=== PATIENT | male | born 1950 | race Caucasian/White ===

== ENCOUNTER 2021-02-22 05:57 | Outpatient (REF) | payer MEDICARE, MEDICAID, SELFPAY ==
[2021-02-22 11:15] LABS: MANUAL DIFF FLAG NO
[2021-02-22 11:25] LABS: Basophils Absolute Auto 0.1 X10*3/uL (0.0-0.2); Basophils Percent Auto 0.5 % (0-2); Eosinophils Absolute Auto 0.3 X10*3/uL (0.0-0.4); Eosinophils Percent Auto 3.7 % (0-4); Hematocrit 44.6 % (42-52); Hemoglobin 14.9 g/dl (14.0-18.0); Imm Gran Abs Auto 0.05 X10*3/uL (0.00-0.03); Imm Gran Pct Auto 0.5 % (0.0-0.4); Lymphocytes Absolute Auto 2.2 X10*3/uL (1.2-4.9); Lymphocytes Percent Auto 23.9 % (20-40); Mean Corpuscular HGB Conc 33.4 g/dl (31.0-36.0); Mean Corpuscular Hemoglobin 31.6 pg (27.0-33.0); Mean Corpuscular Volume 94.5 fL (80-98); Mean Platelet Volume 9.2 fL (9.4-12.4); Monocytes Absolute Auto 0.8 X10*3/uL (0.1-1.2); Monocytes Percent Auto 8.1 % (2-11); Neutrophils Absolute Auto 5.9 X10*3/uL (2.0-8.3); Neutrophils Percent Auto 63.3 % (45-73); Platelet Count 238 X10*3/uL (160-400); Red Blood Count 4.72 X10*6/uL (4.60-5.80); Red Cell Distribution Width 12.7 % (11.0-16.0); White Blood Count 9.3 X10*3/uL (4.8-10.8)
[2021-02-22 11:39] LABS: Glucose Urine UA NEG (NEG); Leukocyte Esterase Urine NEG (NEG); Nitrite Urine NEG (NEG); Specific Gravity - Urine 1.015 (1.005-1.025); Urine Blood NEG (NEG); Urine Ketones NEG (NEG); Urine Protein NEG (NEG-TRACE)
[2021-02-22 11:43] LABS: Alanine Aminotransferase 20 U/L (0-40); Albumin Level 4.2 g/dL (3.5-5.0); Alkaline Phosphatase 80 U/L (39-117); Anion Gap 14 (12-20); Aspartate Amino Transferase 17 U/L (5-37); Bilirubin Total 1.3 mg/dL (0.0-1.0); Blood Urea Nitrogen 18 mg/dL (9-16); Calcium 8.6 mg/dL (8.4-10.2); Carbon Dioxide 26 mmol/L (22-29); Chloride 101 mmol/L (96-108); Cholesterol 169 mg/dL; Estimated Glomerular Filt Rate > 60; Glucose Fasting 123 mg/dL (60-99); HDL Cholesterol 64 mg/dL; LDL Cholesterol Calculated 91 mg/dl; Potassium 4.1 mmol/L (3.3-5.1); Sodium 137 mmol/L (135-145); Triglycerides 74 mg/dL
[2021-02-22 11:48] LABS: Appearance Urine CLEAR; Color Urine YELLOW
[2021-02-22 11:49] LABS: TSH reflex Free T4 1.02 uIU/mL (0.32-4.0)
[2021-02-22 12:08] LABS: Creatinine Urine 105.74 mg/dL; Microalbum/Creatinine Ratio Ur 6.6 ug/mg cr
== END 2021-02-22 05:58 | disposition home or self-care (01) ==
LOC: HO.HMGCLDS 05:57
PROVIDERS: PCP Internal Medicine; Visit Provider Internal Medicine
DX: E11.9 Type 2 diabetes mellitus without complications (principal); E78.5 Hyperlipidemia, unspecified; J44.9 Chronic obstructive pulmonary disease, unspecified; E66.9 Obesity, unspecified
CPT/HCPCS: 36415; 80053; 80061; 81003; 82043; 84443; 85025

== ENCOUNTER 2021-03-16 07:54 | Outpatient (REF) | payer MEDICARE, MEDICAID, SELFPAY ==
--- NOTE | ~2021-03-16 | XR_ITS ---
EXAMINATION: XR CERVICAL SPINE XR ELBOW, LEFT CLINICAL INFORMATION: Neck and elbow pain. COMPARISON: Cervical spine of 07/10/2014. TECHNIQUE: 4-view cervical spine and three-view left elbow. FINDINGS: Views of the cervical spine are limited with C5 through C7 not being well seen on lateral view. No abnormal prevertebral soft tissue swelling is present. No definite cervical spine fracture is appreciated. It is difficult to evaluate disc space narrowing C5 through C7. There is seen to be some facet arthropathy at the C2-C3 level. Carotid artery calcifications are present. There is no evidence of acute fracture or dislocation of the left elbow. No left elbow effusion. There is some spurring seen about the coronoid process. There is mild spurring about the radial aspect of the proximal radius. XR/XR elbow LT min 3V IMPRESSION: Limited cervical spine study as described with lack of visualization of lower aspect of C5 through C7. No acute fracture or prevertebral soft tissue swelling is appreciated on this limited study. No evidence of acute fracture or effusion of the left elbow.
--- NOTE | ~2021-03-16 | XR_ITS ---
EXAMINATION: XR CERVICAL SPINE XR ELBOW, LEFT CLINICAL INFORMATION: Neck and elbow pain. COMPARISON: Cervical spine of 07/10/2014. TECHNIQUE: 4-view cervical spine and three-view left elbow. FINDINGS: Views of the cervical spine are limited with C5 through C7 not being well seen on lateral view. No abnormal prevertebral soft tissue swelling is present. No definite cervical spine fracture is appreciated. It is difficult to evaluate disc space narrowing C5 through C7. There is seen to be some facet arthropathy at the C2-C3 level. Carotid artery calcifications are present. There is no evidence of acute fracture or dislocation of the left elbow. No left elbow effusion. There is some spurring seen about the coronoid process. There is mild spurring about the radial aspect of the proximal radius. XR/XR cervical spine 3V IMPRESSION: Limited cervical spine study as described with lack of visualization of lower aspect of C5 through C7. No acute fracture or prevertebral soft tissue swelling is appreciated on this limited study. No evidence of acute fracture or effusion of the left elbow.
== END 2021-03-16 07:55 | disposition home or self-care (01) ==
LOC: HO.HMGCX 07:54
PROVIDERS: PCP Internal Medicine; Visit Provider Internal Medicine
DX: M47.812 Spondylosis without myelopathy or radiculopathy, cervical region (principal); M25.522 Pain in left elbow
CPT/HCPCS: 72040; 73080

== ENCOUNTER 2021-05-26 06:01 | Outpatient (REF) | payer MEDICARE, MEDICAID, SELFPAY ==
[2021-05-26 11:16] LABS: MANUAL DIFF FLAG NO
[2021-05-26 11:23] LABS: Basophils Absolute Auto 0.1 X10*3/uL (0.0-0.2); Basophils Percent Auto 0.7 % (0-2); Eosinophils Absolute Auto 0.4 X10*3/uL (0.0-0.4); Eosinophils Percent Auto 4.8 % (0-4); Hematocrit 45.2 % (42-52); Imm Gran Abs Auto 0.04 X10*3/uL (0.00-0.03); Imm Gran Pct Auto 0.4 % (0.0-0.4); Lymphocytes Absolute Auto 2.5 X10*3/uL (1.2-4.9); Lymphocytes Percent Auto 27.4 % (20-40); Mean Corpuscular HGB Conc 33.2 g/dl (31.0-36.0); Mean Corpuscular Hemoglobin 31.3 pg (27.0-33.0); Mean Corpuscular Volume 94.2 fL (80-98); Mean Platelet Volume 9.3 fL (9.4-12.4); Monocytes Absolute Auto 0.7 X10*3/uL (0.1-1.2); Neutrophils Absolute Auto 5.4 X10*3/uL (2.0-8.3); Neutrophils Percent Auto 58.7 % (45-73); Platelet Count 216 X10*3/uL (160-400); Red Cell Distribution Width 12.5 % (11.0-16.0); White Blood Count 9.2 X10*3/uL (4.8-10.8)
[2021-05-26 11:34] LABS: Estimated Average Glucose 143 mg/dL; Hemoglobin A1c % 6.6 %
[2021-05-26 11:38] LABS: Glucose Urine UA NEG (NEG); Leukocyte Esterase Urine NEG (NEG); Nitrite Urine NEG (NEG); Specific Gravity - Urine <= 1.005 (1.005-1.025); Urine Blood NEG (NEG); Urine Ketones NEG (NEG); Urine Protein NEG (NEG-TRACE)
[2021-05-26 11:39] LABS: Creatinine Urine 71.65 mg/dL; Microalbumin Urine < 5.0 mg/L
[2021-05-26 11:42] LABS: Alanine Aminotransferase 14 U/L (0-40); Albumin Level 4.2 g/dL (3.5-5.0); Alkaline Phosphatase 97 U/L (39-117); Anion Gap 17 (12-20); Aspartate Amino Transferase 14 U/L (5-37); Bilirubin Total 0.9 mg/dL (0.0-1.0); Blood Urea Nitrogen 12 mg/dL (9-16); Carbon Dioxide 24 mmol/L (22-29); Chloride 101 mmol/L (96-108); Cholesterol 181 mg/dL; Estimated Glomerular Filt Rate > 60; Glucose Fasting 119 mg/dL (60-99); HDL Cholesterol 62 mg/dL; LDL Cholesterol Calculated 106 mg/dl; Potassium 4.2 mmol/L (3.3-5.1); Sodium 138 mmol/L (135-145); Triglycerides 66 mg/dL
[2021-05-26 11:46] LABS: Appearance Urine CLEAR; Color Urine YELLOW
[2021-05-26 12:06] LABS: TSH reflex Free T4 1.01 uIU/mL (0.32-4.0)
== END 2021-05-26 06:02 | disposition home or self-care (01) ==
LOC: HO.HMGCLDS 06:01
PROVIDERS: PCP Internal Medicine; Visit Provider Internal Medicine
DX: E11.9 Type 2 diabetes mellitus without complications (principal); J44.9 Chronic obstructive pulmonary disease, unspecified; E78.5 Hyperlipidemia, unspecified; E66.9 Obesity, unspecified
CPT/HCPCS: 36415; 80053; 80061; 81003; 82043; 83036; 84443; 85025

== ENCOUNTER 2022-01-19 06:15 | Outpatient (REF) | payer MEDICARE, MEDICAID, SELFPAY ==
[2022-01-19 11:02] LABS: MANUAL DIFF FLAG NO
[2022-01-19 11:13] LABS: Appearance Urine CLEAR; Color Urine STRAW; Glucose Urine UA NEG (NEG); Leukocyte Esterase Urine NEG (NEG); Nitrite Urine NEG (NEG); Specific Gravity - Urine <= 1.005 (1.005-1.025); Urine Blood NEG (NEG); Urine Ketones NEG (NEG); Urine Protein NEG (NEG-TRACE)
[2022-01-19 11:18] LABS: Basophils Absolute Auto 0.1 X10*3/uL (0.0-0.2); Basophils Percent Auto 0.6 % (0-2); Eosinophils Absolute Auto 0.3 X10*3/uL (0.0-0.4); Eosinophils Percent Auto 3.9 % (0-4); Hematocrit 45.2 % (42.0-52.0); Imm Gran Abs Auto 0.05 X10*3/uL (0.00-0.03); Imm Gran Pct Auto 0.6 % (0.0-0.4); Lymphocytes Percent Auto 25.4 % (20-40); Mean Corpuscular HGB Conc 33.2 g/dl (31.0-36.0); Mean Corpuscular Hemoglobin 30.9 pg (27.0-33.0); Mean Platelet Volume 9.1 fL (9.4-12.4); Monocytes Absolute Auto 0.6 X10*3/uL (0.1-1.2); Monocytes Percent Auto 7.2 % (2-11); Neutrophils Percent Auto 62.3 % (45-73); Platelet Count 214 X10*3/uL (160-400); Red Blood Count 4.86 X10*6/uL (4.60-5.80); Red Cell Distribution Width 12.7 % (11.0-16.0)
[2022-01-19 11:41] LABS: Estimated Average Glucose 134 mg/dL; Hemoglobin A1c % 6.3 %
[2022-01-19 11:48] LABS: Alanine Aminotransferase 15 U/L (0-40); Albumin Level 4.3 g/dL (3.5-5.0); Alkaline Phosphatase 83 U/L (39-117); Anion Gap 14 (12-20); Aspartate Amino Transferase 17 U/L (5-37); Bilirubin Total 1.4 mg/dL (0.0-1.0); Blood Urea Nitrogen 14 mg/dL (9-16); Calcium 9.6 mg/dL (8.4-10.2); Carbon Dioxide 25 mmol/L (22-29); Chloride 102 mmol/L (96-108); Cholesterol 166 mg/dL; Estimated Glomerular Filt Rate > 60; Glucose Fasting 111 mg/dL (60-99); HDL Cholesterol 56 mg/dL; LDL Cholesterol Calculated 96 mg/dl; Potassium 3.9 mmol/L (3.3-5.1); Sodium 137 mmol/L (135-145); Total Protein 7.1 g/dL (6.5-8.0); Triglycerides 72 mg/dL
[2022-01-19 11:49] LABS: Creatinine Urine 24.46 mg/dL; Microalbumin Urine < 5.0 mg/L
[2022-01-19 11:53] LABS: TSH reflex Free T4 0.91 uIU/mL (0.32-4.0); Vitamin D 25-OH Total 15.8 ng/mL (>30)
== END 2022-01-19 06:16 | disposition home or self-care (01) ==
LOC: HO.HMGCLDS 06:15
PROVIDERS: Visit Provider Internal Medicine
DX: I10 Essential (primary) hypertension (principal); E78.00 Pure hypercholesterolemia, unspecified; E11.9 Type 2 diabetes mellitus without complications; E55.9 Vitamin D deficiency, unspecified
CPT/HCPCS: 36415; 80053; 80061; 81003; 82043; 82306; 83036; 84443; 85025

== ENCOUNTER 2022-09-13 06:05 | Outpatient (REF) | payer MEDICARE, MEDICAID, SELFPAY ==
[2022-09-13 11:17] LABS: MANUAL DIFF FLAG NO
[2022-09-13 11:29] LABS: Appearance Urine Clear; Color Urine Yellow; Glucose Urine UA Negative (Negative); Leukocyte Esterase Urine Negative (Negative); Nitrite Urine Negative (Negative); PH 6.5 (5.0-9.0); Specific Gravity - Urine <= 1.005 (1.005-1.025); Urine Blood Negative (Negative); Urine Ketones Negative (Negative); Urine Protein Negative (Neg-Trace)
[2022-09-13 11:34] LABS: Basophils Percent Auto 0.5 % (0-2); Eosinophils Absolute Auto 0.3 X10*3/uL (0.0-0.4); Eosinophils Percent Auto 3.2 % (0-4); Hematocrit 45.3 % (42.0-52.0); Hemoglobin 15.5 g/dl (14.0-18.0); Imm Gran Abs Auto 0.03 X10*3/uL (0.00-0.03); Imm Gran Pct Auto 0.4 % (0.0-0.4); Lymphocytes Absolute Auto 2.4 X10*3/uL (1.2-4.9); Lymphocytes Percent Auto 30.6 % (20-40); Mean Corpuscular HGB Conc 34.2 g/dl (31.0-36.0); Mean Corpuscular Hemoglobin 32.4 pg (27.0-33.0); Mean Corpuscular Volume 94.6 fL (80.0-98.0); Mean Platelet Volume 9.2 fL (9.4-12.4); Monocytes Absolute Auto 0.7 X10*3/uL (0.1-1.2); Monocytes Percent Auto 8.8 % (2-11); Neutrophils Absolute Auto 4.5 x10*3/uL (2.0-8.3); Neutrophils Percent Auto 56.5 % (45-73); Platelet Count 200 X10*3/uL (160-400); Red Blood Count 4.79 X10*6/uL (4.60-5.80); Red Cell Distribution Width 12.9 % (11.0-16.0); White Blood Count 7.9 X10*3/uL (4.8-10.8)
[2022-09-13 11:43] LABS: Estimated Average Glucose 126 mg/dL
[2022-09-13 11:48] LABS: Alanine Aminotransferase 15 U/L (0-40); Albumin Level 4.6 g/dL (3.5-5.0); Alkaline Phosphatase 88 U/L (39-117); Anion Gap 19 (12-20); Aspartate Amino Transferase 15 U/L (5-37); Bilirubin Total 1.4 mg/dL (0.0-1.0); Blood Urea Nitrogen 15 mg/dL (9-16); Calcium 9.8 mg/dL (8.4-10.2); Carbon Dioxide 25 mmol/L (22-29); Chloride 99 mmol/L (96-108); Cholesterol 186 mg/dL; Estimated Glomerular Filt Rate > 60; Glucose Fasting 98 mg/dL (60-99); HDL Cholesterol 67 mg/dL; LDL Cholesterol Calculated 108 mg/dl; Potassium 4.6 mmol/L (3.3-5.1); Sodium 138 mmol/L (135-145); Total Protein 7.4 g/dL (6.5-8.0); Triglycerides 57 mg/dL
[2022-09-13 12:10] LABS: Vitamin D 25-OH Total 16.2 ng/mL (>30)
[2022-09-13 12:22] LABS: Creatinine Urine 19.79 mg/dL; Microalbumin Urine < 5.0 mg/L
== END 2022-09-13 06:06 | disposition home or self-care (01) ==
LOC: HO.HMGCLDS 06:05
PROVIDERS: PCP Internal Medicine; Visit Provider Internal Medicine
DX: E11.9 Type 2 diabetes mellitus without complications (principal); E78.00 Pure hypercholesterolemia, unspecified; E55.9 Vitamin D deficiency, unspecified; I10 Essential (primary) hypertension
CPT/HCPCS: 36415; 80053; 80061; 81003; 82043; 82306; 83036; 84443; 85025

== ENCOUNTER 2023-06-01 08:04 | Outpatient (AMB) | payer MEDICARE, MEDICAID, SELFPAY ==
--- NOTE | 2023-06-01 08:10 | AM.OFFWIN_ITS ---
Intake Vital Signs 06/01/23 08:11 BP 130/80 Blood Pressure Location Rt brachial Position Sitting Pulse 106 H Pulse Source Pulse Oximeter Temp 98.7 F Temp Source Temporal Artery Scan Pulse Oximetry (%) 98 Oxygen Delivery Method Room Air Intake Visit Reasons: EP Pneumonia/copd struggling since smoke Intake Note: Patient here because he believes he has pneumonia. he states he has a hx of this. cold sweats, trouble breathing, spitting up green sputum. Patient Tobacco Use Status: Former Tobacco user Allergies cortisone Allergy (Unknown, Verified 06/01/23 08:11) Unknown penicillin V Allergy (Unknown, Verified 06/01/23 08:11) rash/hyperventilation, hives tramadol Allergy (Unknown, Verified 06/01/23 08:11) rash metformin Adverse Reaction (Intermediate, Verified 06/01/23 08:11) abdominal pain Do you need a note to return to daycare/school/sports/work: No HPI HPI Comments History of Present Illness Details 73-year-old male with past medical history significant for chronic obstructive pulmonary disease who presents to the office today for a sick visit. Patient reports dyspnea on exertion and a productive cough x2 weeks. Patient states his symptoms started with the poor air quality. He denies any fevers or chills. He denies any chest pain. He denies any hemoptysis. He denies any lower extremity edema. [facility] Medical History COPD (chronic obstructive pulmonary disease) Degenerative arthritis of cervical spine Degenerative joint disease of right knee Diabetes mellitus Dyslipidemia Elevated blood pressure reading Left elbow pain Obesity (BMI 30-39.9) Osteoarthritis Right rotator cuff tear arthropathy Vitamin D deficiency Surgical History H/O right wrist surgery History of elbow surgery History of hernia repair History of vasectomy S/P LASIK surgery of both eyes Family History Father Diabetes Mother Medical history unknown Other Substance abuse Social History Housing: House Alcohol intake: former Patient Tobacco Use Status: Former Tobacco user e-Cigarette/Vaping Use: Never Used Second Hand Smoke Exposure: Yes service: Yes ([employer]) Current occupational status: retired Cognitive needs: No Hearing needs: No Vision needs: No Review of Systems Const All systems reviewed & are unremarkable except as noted in HPI and below Card Denies chest pain, Denies chest pain at rest, Denies chest pain with activity, Denies leg edema and Reports dyspnea on exertion Resp Reports cough and Reports dyspnea on exertion Physical Exam Vital Signs: Last Vital Signs Temp 98.7 F 06/01/23 08:11 Pulse 106 H 06/01/23 08:11 BP 130/80 06/01/23 08:11 Pulse Ox 98 06/01/23 08:11 Oxygen Delivery Method Room Air 06/01/23 08:11 Const General: cooperative Orientation/consciousness: patient oriented x3 HEENT Head: Yes normal to inspection Ears: hearing grossly normal bilaterally General nose exam: Normal external nose present Face and sinus: Yes normal facial exam Mouth: Normal oral and palatal mucosa present Throat: Yes posterior oropharynx normal Resp Other: Scattered rhonchorous breath sounds and expiratory wheezing. Effort & Inspection: normal respiratory effort, able to speak in complete sentences, not labored and no nasal flaring Auscultation: rhonchi and wheezes Cardio Rate: regular rate Rhythm: regular rhythm Heart sounds: no gallops, no murmurs and no rubs Skin General skin exam: no rashes or lesions noted Neuro General: patient oriented x3 Assessment & Plan Assessment & Plan (1) COPD with exacerbation: Code(s): J44.1 - Chronic obstructive pulmonary disease with (acute) exacerbation Plan: This is a 73-year-old male with past medical history significant for chronic obstructive pulmonary disease who presents with dyspnea on exertion and a productive cough x2 weeks. History and physical most consistent with an acute COPD exacerbation likely secondary to bacterial bronchitis or pneumonia. Patient is maintaining oxygen saturations at 98% on room air. Patient does have mild tachycardia, but this appears to be his baseline and he did just administer a nebulizer treatment prior to arrival. History and physical concerning for an acute pulmonary embolism at this time. Antibiotics and steroid taper sent to pharmacy. Patient advised to purchase a pulse oximeter and measure his oxygen saturations throughout the day. He was instructed to present to the emergency room if his oxygen saturation is less than 80%. Patient verbalizes understanding and he is in agreement with the plan. Medications: New azithromycin For 250 mg dose pack: take 500 mg today (day 1), then 250 mg for 4 days (days 2-5) PO 6 tabs 0RF prednisone Take 4 tablets daily x2 days followed by 3 tablets daily x2 days followed by 2 tablets daily x2 days followed by 1 tablet daily x2 days. 10 mg PO DIRECTED 20 tabs 0RF Coding Level of Care Code Est Pt Level 3 (29626) Diagnoses COPD with exacerbation J44.1
[2023-06-01 08:11] VITALS: BP 130/80; PULSE 106; TEMP 37.1; O2SAT 98
== END 2023-06-01 08:38 | disposition home or self-care (01) ==
PROVIDERS: PCP Internal Medicine; Visit Provider Physician Assistant Medical
DX: J44.1 Chronic obstructive pulmonary disease with (acute) exacerbation (principal)
CPT/HCPCS: 99213

== ENCOUNTER 2023-06-25 06:03 | Outpatient (REF) | payer MEDICARE, MEDICAID, SELFPAY ==
[2023-06-25 11:24] LABS: MANUAL DIFF FLAG NO
[2023-06-25 11:25] LABS: Appearance Urine Clear; Color Urine Yellow; Glucose Urine UA Negative (Negative); Leukocyte Esterase Urine Negative (Negative); Nitrite Urine Negative (Negative); Specific Gravity - Urine <= 1.005 (1.005-1.025); UMIC TRIGGER UACC YES; Urine Blood Small (1+) (Negative); Urine Ketones Negative (Negative); Urine Protein Negative (Neg-Trace)
[2023-06-25 11:34] LABS: Bacteria Urine None Seen (None Seen); Hyaline Casts Urine 0-2 /LPF (0-2); RBC Urine 0-2 /HPF (0-2); Squamous Epithelial Cell Urine 0-2 /HPF (0-2); WBC Urine 0-5 /HPF (0-5)
[2023-06-25 11:49] LABS: Basophils Absolute Auto 0.1 X10*3/uL (0.0-0.2); Basophils Percent Auto 0.6 % (0-2); Eosinophils Absolute Auto 0.4 X10*3/uL (0.0-0.4); Eosinophils Percent Auto 4.4 % (0-4); Hematocrit 48.2 % (42.0-52.0); Imm Gran Abs Auto 0.04 X10*3/uL (0.00-0.03); Imm Gran Pct Auto 0.5 % (0.0-0.4); Lymphocytes Absolute Auto 2.4 X10*3/uL (1.2-4.9); Lymphocytes Percent Auto 29.4 % (20-40); Mean Corpuscular HGB Conc 33.2 g/dl (31.0-36.0); Mean Corpuscular Hemoglobin 31.1 pg (27.0-33.0); Mean Corpuscular Volume 93.6 fL (80.0-98.0); Monocytes Absolute Auto 0.6 X10*3/uL (0.1-1.2); Monocytes Percent Auto 7.6 % (2-11); Neutrophils Absolute Auto 4.6 x10*3/uL (2.0-8.3); Neutrophils Percent Auto 57.5 % (45-73); Platelet Count 192 X10*3/uL (160-400); Red Blood Count 5.15 X10*6/uL (4.60-5.80); Red Cell Distribution Width 12.9 % (11.0-16.0)
[2023-06-25 12:11] LABS: Estimated Average Glucose 134 mg/dL; Hemoglobin A1c % 6.3 %
[2023-06-25 12:45] LABS: Alanine Aminotransferase 21 U/L (0-40); Albumin Level 4.4 g/dL (3.5-5.0); Alkaline Phosphatase 73 U/L (39-117); Anion Gap 16 (12-20); Aspartate Amino Transferase 18 U/L (5-37); Bilirubin Total 1.4 mg/dL (0.0-1.0); Blood Urea Nitrogen 14 mg/dL (9-16); Calcium 9.4 mg/dL (8.4-10.2); Carbon Dioxide 22 mmol/L (22-29); Chloride 102 mmol/L (96-108); Cholesterol 179 mg/dL; Estimated Glomerular Filt Rate > 60; Glucose Fasting 119 mg/dL (60-99); HDL Cholesterol 71 mg/dL; LDL Cholesterol Calculated 94 mg/dl; Microalbumin Urine < 5.0 mg/L; Sodium 136 mmol/L (135-145); Total Protein 7.4 g/dL (6.5-8.0); Triglycerides 74 mg/dL
[2023-06-25 12:47] LABS: TSH reflex Free T4 1.46 uIU/mL (0.32-4.0); Vitamin D 25-OH Total 28.2 ng/mL (>30)
== END 2023-06-25 06:04 | disposition home or self-care (01) ==
LOC: HO.HMGCLDS 06:03
PROVIDERS: PCP Internal Medicine; Visit Provider Internal Medicine
DX: I10 Essential (primary) hypertension (principal); E78.00 Pure hypercholesterolemia, unspecified; E11.9 Type 2 diabetes mellitus without complications; E55.9 Vitamin D deficiency, unspecified
CPT/HCPCS: 36415; 80053; 80061; 81001; 82043; 82306; 83036; 84443; 85025

== ENCOUNTER 2023-06-26 09:16 | Outpatient (AMB) | payer MEDICARE, MEDICAID, SELFPAY ==
[2023-06-26 09:29] VITALS: BP 148/90; PULSE 48; O2SAT 96; BMI 32.8
--- NOTE | 2023-06-26 09:29 | MHC.PC.OV ---
Vital Signs 06/26/23 09:29 Height 5 ft 6 in Weight 203 lb 6 oz BMI 32.8 BP 148/90 H Blood Pressure Location Lt brachial Position Sitting Pulse 48 L Pulse Source Pulse Oximeter Pulse Oximetry (%) 96 Oxygen Delivery Method Room Air Intake Visit Reasons: DM,COPD Commander Internal Affairs Required: No Accompanied by: Self / Same As Patient Allergies cortisone Allergy (Unknown, Verified 06/26/23 09:57) Unknown penicillin V Allergy (Unknown, Verified 06/26/23 09:57) rash/hyperventilation, hives tramadol Allergy (Unknown, Verified 06/26/23 09:57) rash metformin Adverse Reaction (Intermediate, Verified 06/26/23 09:57) abdominal pain Medication List - Last Reconciled 06/26/23 by Jack Gomez MD albuterol sulfate 2.5 mg (3 mL) continuous nebulization Q6H PRN 90 days cholecalciferol (vitamin D3) 50 mcg PO DAILY 90 days linagliptin 5 mg PO DAILY 90 days Symbicort 160-4.5 mcg/actuation (budesonide-formoterol) 2 puffs PO BID 3 months NS tramadol 50 mg PO TID PRN 30 days umeclidinium 62.5 mcg/actuation (Incruse Ellipta) 1 inh PO DAILY 3 months Ventolin HFA 90 mcg/actuation (albuterol sulfate) 2 puffs PO Q4H PRN NS Tobacco use date assessed: 06/26/23 Fall risk assessment: No Falls in past year Last assessed Fall Risk: 06/26/23 Dental Screening Dental Screen Date: 06/26/23 Did you have a dental visit in the last 12 months?: No Did you have a dental problem in the last 6 months where you did not have access to dental care?: No Was dental information given to patient?: No HPI DM,COPD HPI Details Patient comes in today for his follow up visit States that he continues to experience increased stress, which is mostly due to family issues Relates that he does not sleep well at night and feels fatigued all the time BP has been high often lately and he is attributing this to his stress He denies any headaches or dizziness Denies any chest pains, no increased SOB No nausea/vomiting, no abdominal pain No change in bowel habits noted States that his chronic neck pain and joint pains remain adequately controlled on his current meds Needs his Ventolin inhaler Rx refilled - states that the last refill sent to his pharmacy did not include any further refills Had his follow up labs done yesterday - to discuss his results [facility] Medical History COPD (chronic obstructive pulmonary disease) Degenerative arthritis of cervical spine Degenerative joint disease of right knee Diabetes mellitus Dyslipidemia Elevated blood pressure reading Left elbow pain Obesity (BMI 30-39.9) Osteoarthritis Right rotator cuff tear arthropathy Vitamin D deficiency Surgical History H/O right wrist surgery History of elbow surgery History of hernia repair History of vasectomy S/P LASIK surgery of both eyes Family History Father Diabetes Mother Medical history unknown Other Substance abuse Social History Housing: House Alcohol intake: former Patient Tobacco Use Status: Former Tobacco user e-Cigarette/Vaping Use: Never Used Second Hand Smoke Exposure: Yes service: Yes ([employer]) Current occupational status: retired Cognitive needs: No Hearing needs: No Vision needs: No Questionnaire PHQ-9 Over the last 2 weeks, how often have you been bothered by any of the following problems? 1. Little interest or pleasure in doing things: nearly every day 2. Feeling down, depressed, or hopeless: nearly every day 3. Trouble falling or staying asleep, or sleeping too much: nearly every day 4. Feeling tired or having little energy: nearly every day 5. Poor appetite or overeating: not at all 6. Feeling bad about yourself - or that you are a failure or have let yourself or your family down: not at all 7. Trouble concentrating on things, such as reading the newspaper or watching television: not at all 8. Moving or speaking so slowly that other people could have noticed. Or the opposite - being so fidgety or restless that you have been moving around a lot more than usual: not at all 9. Thoughts that you would be better off or of hurting yourself in some way: not at all Total score: 12 Depression Screening Interpretation: Positive Depression Screening Follow-up: Existing condition, Community Mental Health Worker F/U and Follow-up Visit Requested [id number] - PHQ-9 Billing: Yes Source: Developed by Drs. Juan Manuel Maldonado, Brigitte Santiago, Khurram Winkler and colleagues, with an educational serafin from [employer]. Thrive Questionnaire Date Thrive assessed: 06/26/23 I am a: Patient What is your living situation today?: I have a steady place to live Within the past 12 months, did the food you bought not last and you didn't have the money to get more?: Never true Within the past 12 months, did you worry whether your food would run out before you got money to buy more?: Never true Do you have trouble paying for medicines?: No Do you have trouble getting transportation to medical appointments?: No Do you have trouble paying your heating and electricity bill?: No Do you have trouble taking care of your child, family member or friend?: No Do you have trouble with day-to-day activities such as bathing, preparing meals, shopping, managing finances, etc.?: No Are you currently unemployed and looking for a job?: No Are you interested in more education?: No Please select the resources that you would like help with: None Currently or been in a relationship where the following occur: no concerns reported AUDIT C Alcohol Use Questionnaire (AUDIT-C) 1. How often do you have a drink containing alcohol?: Never 3. How often do you have six or more drinks on one occasion?: Never Total Score: 0 Score Reviewed/Action Taken: Yes MONSTER-7 AMB Questionnaire MONSTER-7 Date MONSTER - 7 assessed: 06/26/23 Feeling nervous, anxious, or on edge: 3 = Nearly every day Not being able to stop or control worryin = Nearly every day Worrying too much about different things: 3 = Nearly every day Trouble relaxin = Nearly every day Being so restless that it is hard to sit still: 3 = Nearly every day Becoming easily annoyed or irritable: 3 = Nearly every day Feeling afraid as if something awful might happen: 3 = Nearly every day Total MONSTER-7 score (0-4 normal; 5-9 mild; 10-14 moderate; 15-21 severe): 21 Source: Developed by Drs. Juan Manuel Maldonado, Brigitte Santiago, Khurram Winkler and colleagues, with an educational serafin from [employer]. Review of Systems Const Denies chills, Reports difficulty sleeping, Reports fatigue, Denies fever(s) and Denies headache(s) ENT Denies dysphagia, Denies dizziness, Denies otalgia, Denies headache(s), Reports neck pain (chronic), Denies sinus pain and Denies sore throat Card Denies chest pain, Denies palpitations and Reports dyspnea on exertion (mild) Resp Denies cough, Denies pain with cough, Reports dyspnea on exertion (mild) and Denies wheezing GI Denies abdominal pain, Denies constipation, Denies dysphagia, Denies heartburn, Denies diarrhea, Denies nausea and Denies vomiting Denies dysuria, Denies nocturia and Denies urinary frequency Musc Reports arthralgias (involving both knees and hips; increased over left thumb recently), Reports neck pain (chronic) and Reports stiffness Neuro Denies dizziness and Denies headache(s) Psych Reports anxiety, Reports depression and Denies suicidal ideation Endo Reports fatigue and Denies palpitations Aller/Immun Denies wheezing Physical exam (Primary Care) Vital Signs: Last Vital Signs Pulse 48 L 06/26/23 09:29 BP 148/90 H 06/26/23 09:29 Pulse Ox 96 06/26/23 09:29 Oxygen Delivery Method Room Air 06/26/23 09:29 BMI result Body Mass Index 32.8 Tobacco/Smoking Status: Tobacco use Status Tobacco use date assessed 06/26/23 06/26/23 09:36 Patient Tobacco Use Status Former Tobacco user 06/26/23 09:36 e-Cigarette/Vaping Use Never Used 06/26/23 09:36 PHQ-9: PHQ-9 Score PHQ-9: Total score 12 06/26/23 09:36 Depression Screening Interpretation: Positive Depression Screening Follow-up: Existing condition, Community Mental Health Worker F/U and Follow-up Visit Requested Thrive Assessment: Date of Thrive Assessment Date Thrive assessed 06/26/23 06/26/23 09:36 Currently or been in a relationship where the following occur: no concerns reported Const General: no acute distress and alert HENMT Ears: TM's normal bilaterally and EAC's normal Throat: Yes posterior oropharynx normal and Yes tonsils normal (no TP congestion noted) Neck Neck: Yes no lymphadenopathy and Yes supple Resp Auscultation: clear to auscultation bilaterally, no rales, no wheezes and diminished lung sounds (slightly) bilateral Cardio Rate: regular rate Rhythm: regular rhythm Heart sounds: no murmurs GI Palpation (GI): Soft to palpation and nontender Auscultation: normal bowel sounds Back/Spine/Pelvis Cervical Spine: Cervical spine tenderness (chronic) Extrem General: Yes no clubbing, cyanosis or edema Right lower extremity: knee Details: tenderness; no swelling Left lower extremity: knee Details: tenderness; no swelling Results Reviewed Results Reviewed: Laboratory Tests 06/25/23 06/25/23 06/25/23 06:15 06:15 06:15 WBC 8.0 Hgb 16.0 Hct 48.2 Plt Count 192 Sodium 136 Potassium 4.0 Creatinine 0.83 Estimated GFR > 60 Fasting Glucose 119 H Hemoglobin A1c % Calcium 9.4 Total Bilirubin 1.4 H AST 18 ALT 21 Triglycerides 74 Cholesterol 179 LDL Cholesterol, Calc 94 HDL Cholesterol 71 25-OH Vitamin D Total 28.2 TSH 1.46 Ur Specific [place] <= 1.005 Urine Protein Negative Urine Glucose (UA) Negative Urine Blood Small (1+) H 06/25/23 06:15 WBC Hgb Hct Plt Count Sodium Potassium Creatinine Estimated GFR Fasting Glucose Hemoglobin A1c % 6.3 Calcium Total Bilirubin AST ALT Triglycerides Cholesterol LDL Cholesterol, Calc HDL Cholesterol 25-OH Vitamin D Total TSH Ur Specific [place] Urine Protein Urine Glucose (UA) Urine Blood Assessment and Plan Assessment & Plan (1) COPD (chronic obstructive pulmonary disease): Comment: severe COPD on PFTs with partial reversibility - 11/2011 - sees Dr. Laws Code(s): J44.9 - Chronic obstructive pulmonary disease, unspecified Qualifiers: COPD type: unspecified COPD Qualified Code(s): J44.9 - Chronic obstructive pulmonary disease, unspecified Plan: Stable/controlled currently; apparently had an acute exacerbation/flare up last month that require a course of oral prednisone taper Continue Incruse Ellipta 62.5 mcg 1 inhalation once a day, Symbicort 160-4.5 mcg 2 puffs BID and Ventolin HFA 2 puffs every 4 to 6 hours as needed Patient also has Albuterol solution that he uses with his nebulizer every 6 hours when needed Follow up with pulmonary (Dr. Laws) as scheduled (2) Diabetes mellitus: Code(s): E11.9 - Type 2 diabetes mellitus without complications Qualifiers: Diabetes mellitus type: type 2 Diabetes mellitus termite exterminator helper insulin use: without termite exterminator helper use Diabetes mellitus complication status: without complication Qualified Code(s): E11.9 - Type 2 diabetes mellitus without complications Plan: HgbA1c done yesterday was at 6.3% (in-office HgbA1c was at 6.5% a few months ago) - goal is <7.0% Reinforced diabetic diet Continue Tradjenta 5 mg QD (3) Elevated blood pressure reading: Code(s): R03.0 - Elevated blood-pressure reading, without diagnosis of hypertension Plan: His BP is again elevated today - states that he has been under a lot of stress and feels that his BP is up because of this Goal is systolic BP of at least 140 to 150 mm or less Reinforced low sodium diet Patient is instructed to monitor his blood pressure regularly (4) Dyslipidemia: Code(s): E78.5 - Hyperlipidemia, unspecified Plan: Results of his labs done yesterday reviewed and discussed with patient Reinforced low cholesterol diet Will recheck his labs in 4 months for follow up (5) Vitamin D deficiency: Code(s): E55.9 - Vitamin D deficiency, unspecified Plan: Improving; continue Vitamin D3 2000 units QD (6) Degenerative arthritis of cervical spine: Code(s): M47.812 - Spondylosis without myelopathy or radiculopathy, cervical region Qualifiers: Spinal osteoarthritis complication: unspecified spinal osteoarthritis Qualified Code(s): M47.812 - Spondylosis without myelopathy or radiculopathy, cervical region Plan: X-rays of the cervical spine done back in 2013 revealed degenerative spondylosis and degenerative disc disease at C5-C6 and C6-C7 Repeat cervical spine x-rays done a few months ago came out as a limited cervical spine study with lack of visualization of the lower aspect of C5 through C7, but no acute fracture or prevertebral soft tissue swelling was appreciated on this limited study. Continue Tramadol 50 mg TID PRN and Tizanidine 4 mg TID PRN (7) Osteoarthritis: Comment: involving both knees and both hips Code(s): M19.90 - Unspecified osteoarthritis, unspecified site Qualifiers: Osteoarthritis location: unspecified site Osteoarthritis type: primary Qualified Code(s): M19.91 - Primary osteoarthritis, unspecified site Plan: Continue Tramadol 50 mg TID PRN for pain May need to see orthopedics again if his joint pains get worse (8) Insomnia: Code(s): G47.00 - Insomnia, unspecified Qualifiers: Insomnia type: unspecified Qualified Code(s): G47.00 - Insomnia, unspecified Plan: Sleep hygiene discussed Will start patient on a trial of Trazodone 50 mg Q HS PRN (9) Stress: Code(s): F43.9 - Reaction to severe stress, unspecified Plan: Patient reports increased stress at home, mostly due to family issues Patient feels that this is a main cause of his elevated BP often Have offered to start him on some Rx to help but he declined at this time (10) Obesity (BMI 30-39.9): Code(s): E66.9 - Obesity, unspecified Plan: Reinforced diet; exercise and weight loss is unrealistic given patient's COPD and limited activity tolerance Plan Follow up in 4 months Orders: Orders Comprehensive [place]. Panel Fast 4 Months E78.00 - Pure hypercholesterolemia, unspecified Hemoglobin A1c 4 Months E11.9 - Type 2 diabetes mellitus without complications Lipid Panel 4 Months E78.00 - Pure hypercholesterolemia, unspecified TSH reflex Free T4 4 Months E78.00 - Pure hypercholesterolemia, unspecified Vitamin D 25-OH Total 4 Months E55.9 - Vitamin D deficiency, unspecified Microalbumin, Random (w Creat) 4 Months E11.9 - Type 2 diabetes mellitus without complications Complete Blood Count Auto Diff 4 Months I10 - Essential (primary) hypertension UA CC w/rflx Micro + Cult 4 Months R30.0 - Dysuria Medications: New trazodone 50 mg PO BEDTIME 30 days PRN 30 tabs 2RF sleep Refilled Ventolin HFA 90 mcg/actuation (albuterol sulfate) 2 puffs PO Q4H PRN 36 grams 5RF shortness of breath or wheezing NS J44.9 - Chronic obstructive pulmonary disease, unspecified Coding Level of Care Code Est Pt Level 4 (58179) Diagnoses COPD (chronic obstructive pulmonary disease) J44.9 COPD type: unspecified COPD Diabetes mellitus E11.9 Diabetes mellitus type: type 2 Diabetes mellitus prison insulin use: without prison use Diabetes mellitus complication status: without complication Elevated blood pressure reading R03.0 Dyslipidemia E78.5 Vitamin D deficiency E55.9 Degenerative arthritis of cervical spine M47.812 Spinal osteoarthritis complication: unspecified spinal osteoarthritis Osteoarthritis M19.91 Osteoarthritis location: unspecified site Osteoarthritis type: primary Insomnia G47.00 Insomnia type: unspecified Stress F43.9 Obesity (BMI 30-39.9) E66.9
== END 2023-06-26 10:16 | disposition home or self-care (01) ==
LOC: HO.HMGH 09:17
PROVIDERS: PCP Internal Medicine; Visit Provider Internal Medicine
DX: J44.9 Chronic obstructive pulmonary disease, unspecified (principal); E11.9 Type 2 diabetes mellitus without complications; F43.9 Reaction to severe stress, unspecified; E55.9 Vitamin D deficiency, unspecified; R03.0 Elevated blood-pressure reading, without diagnosis of hypertension; E78.5 Hyperlipidemia, unspecified; M47.812 Spondylosis without myelopathy or radiculopathy, cervical region; M19.91 Primary osteoarthritis, unspecified site; G47.00 Insomnia, unspecified; E66.9 Obesity, unspecified
CPT/HCPCS: 99214

== ENCOUNTER 2023-11-06 09:28 | Outpatient (AMB) | payer MEDICARE, MEDICAID, SELFPAY ==
--- NOTE | 2023-11-06 09:36 | A.OFFPC_ITS ---
Vital Signs 11/06/23 09:37 Height 5 ft 6 in Weight 208 lb BMI 33.6 BP 122/80 Blood Pressure Location Lt brachial Position Sitting Pulse 102 H Pulse Source Pulse Oximeter Pulse Oximetry (%) 94 Oxygen Delivery Method Room Air Intake Visit Reasons: COPD, hyperlipidemia, DM, elevated BP Choke Reamer Required: No Accompanied by: Self / Same As Patient Allergies cortisone Allergy (Unknown, Verified 11/06/23 09:37) Unknown penicillin V Allergy (Unknown, Verified 11/06/23 09:37) rash/hyperventilation, hives tramadol Allergy (Unknown, Verified 11/06/23 09:37) rash metformin Adverse Reaction (Intermediate, Verified 11/06/23 09:37) abdominal pain Tobacco use date assessed: 11/06/23 Fall risk assessment: No Falls in past year Last assessed Fall Risk: 11/06/23 Dental Screening Dental Screen Date: 11/06/23 Did you have a dental visit in the last 12 months?: No Did you have a dental problem in the last 6 months where you did not have access to dental care?: No Was dental information given to patient?: No HPI COPD, hyperlipidemia, DM, elevated BP HPI Details Patient comes in today for his follow up visit States that he feels okay He denies any headaches or dizziness Denies any chest pains, no increased SOB No nausea/vomiting, no abdominal pain No change in bowel habits noted Was not able to get his follow up labs done prior to his visit today Was also informed by his insurance company recently that they will no longer continue to cover his Symbicort inhaler and covered alternatives include Breo Inhaler, generic Symbicort and generic Advair [facility] Medical History Vitamin D deficiency Left elbow pain Elevated blood pressure reading Degenerative arthritis of cervical spine Right rotator cuff tear arthropathy Osteoarthritis Dyslipidemia Obesity (BMI 30-39.9) Degenerative joint disease of right knee Diabetes mellitus COPD (chronic obstructive pulmonary disease) Surgical History History of elbow surgery H/O right wrist surgery History of hernia repair S/P LASIK surgery of both eyes History of vasectomy Family History Father Diabetes Mother Medical history unknown Other Substance abuse Social History Housing: House Alcohol intake: former Patient Tobacco Use Status: Former Tobacco user e-Cigarette/Vaping Use: Never Used Second Hand Smoke Exposure: Yes service: Yes (Moment) Current occupational status: retired Cognitive needs: No Hearing needs: No Vision needs: No Questionnaire PHQ-9 Over the last 2 weeks, how often have you been bothered by any of the following problems? 1. Little interest or pleasure in doing things: nearly every day 2. Feeling down, depressed, or hopeless: nearly every day 3. Trouble falling or staying asleep, or sleeping too much: nearly every day 4. Feeling tired or having little energy: nearly every day 5. Poor appetite or overeating: not at all 6. Feeling bad about yourself - or that you are a failure or have let yourself or your family down: not at all 7. Trouble concentrating on things, such as reading the newspaper or watching television: not at all 8. Moving or speaking so slowly that other people could have noticed. Or the opposite - being so fidgety or restless that you have been moving around a lot more than usual: not at all 9. Thoughts that you would be better off or of hurting yourself in some way: not at all Total score: 12 Depression Screening Interpretation: Positive Depression Screening Follow-up: Existing condition, Community Mental Health Worker F/U and Follow-up Visit Requested Depression Screening Done: Yes 84020 - PHQ-9 Billing: Yes Source: Developed by Drs. Juan Manuel Maldonado, Brigitte Santiago, Khurram Winkler and colleagues, with an educational serafin from [employer]. Thrive Questionnaire Date Thrive assessed: 11/06/23 I am a: Patient What is your living situation today?: I have a steady place to live Within the past 12 months, did the food you bought not last and you didn't have the money to get more?: Never true Within the past 12 months, did you worry whether your food would run out before you got money to buy more?: Never true Do you have trouble paying for medicines?: No Do you have trouble getting transportation to medical appointments?: No Do you have trouble paying your heating and electricity bill?: No Do you have trouble taking care of your child, family member or friend?: No Do you have trouble with day-to-day activities such as bathing, preparing meals, shopping, managing finances, etc.?: No Are you currently unemployed and looking for a job?: No Are you interested in more education?: No Please select the resources that you would like help with: None Currently or been in a relationship where the following occur: no concerns reported AUDIT C Alcohol Use Questionnaire (AUDIT-C) 1. How often do you have a drink containing alcohol?: Never 3. How often do you have six or more drinks on one occasion?: Never Total Score: 0 Score Reviewed/Action Taken: Yes MONSTER-7 AMB Questionnaire MONSTER-7 Date MONSTER - 7 assessed: 11/06/23 Feeling nervous, anxious, or on edge: 3 = Nearly every day Not being able to stop or control worryin = Nearly every day Worrying too much about different things: 3 = Nearly every day Trouble relaxin = Nearly every day Being so restless that it is hard to sit still: 3 = Nearly every day Becoming easily annoyed or irritable: 3 = Nearly every day Feeling afraid as if something awful might happen: 3 = Nearly every day Total MONSTER-7 score (0-4 normal; 5-9 mild; 10-14 moderate; 15-21 severe): 21 Source: Developed by Drs. Juan Manuel Maldonado, Brigitte Santiago, Khurram Winkler and colleagues, with an educational serafin from [employer]. Review of Systems Const Denies chills, Reports difficulty sleeping, Reports fatigue, Denies fever(s) and Denies headache(s) ENT Denies dysphagia, Denies dizziness, Denies otalgia, Denies headache(s), Reports neck pain (chronic), Denies odynophagia, Denies sinus pain and Denies sore throat Card Denies chest pain, Denies palpitations and Reports dyspnea on exertion (mild) Resp Denies chest congestion, Denies cough, Reports dyspnea on exertion (mild) and Denies wheezing GI Denies abdominal pain, Denies constipation, Denies dysphagia, Denies heartburn, Denies diarrhea, Denies nausea, Denies odynophagia and Denies vomiting Denies dysuria, Denies nocturia and Denies urinary frequency Musc Reports arthralgias (involving both knees and hips; increased over left thumb recently), Reports neck pain (chronic) and Reports stiffness Skin/Breast Denies rash Neuro Denies dizziness and Denies headache(s) Psych Reports anxiety, Reports depression and Denies suicidal ideation Endo Reports fatigue and Denies palpitations Aller/Immun Denies wheezing Physical exam (Primary Care) Vital Signs: Last Vital Signs Pulse 102 H 11/06/23 09:37 BP 122/80 11/06/23 09:37 Pulse Ox 94 11/06/23 09:37 Oxygen Delivery Method Room Air 11/06/23 09:37 BMI result Body Mass Index 33.6 Tobacco/Smoking Status: Tobacco use Status Tobacco use date assessed 11/06/23 11/06/23 09:42 Patient Tobacco Use Status Former Tobacco user 11/06/23 09:42 e-Cigarette/Vaping Use Never Used 11/06/23 09:42 PHQ-9: PHQ-9 Score PHQ-9: Total score 12 11/06/23 10:05 Depression Screening Interpretation: Positive Depression Screening Follow-up: Existing condition, Community Mental Health Worker F/U and Follow-up Visit Requested Thrive Assessment: Date of Thrive Assessment Date Thrive assessed 11/06/23 11/06/23 09:42 Currently or been in a relationship where the following occur: no concerns reported Const General: no acute distress and alert HENMT Ears: TM's normal bilaterally and EAC's normal Throat: Yes posterior oropharynx normal and Yes tonsils normal (no TP congestion noted) Neck Neck: Yes no lymphadenopathy and Yes supple Resp Auscultation: clear to auscultation bilaterally, no rales, no wheezes and diminished lung sounds (slightly) bilateral Cardio Rate: regular rate Rhythm: regular rhythm Heart sounds: no murmurs GI Palpation (GI): Soft to palpation and nontender Auscultation: normal bowel sounds Back/Spine/Pelvis Cervical Spine: Cervical spine tenderness (chronic) Extrem General: Yes no clubbing, cyanosis or edema Right lower extremity: knee Details: tenderness; no swelling Left lower extremity: knee Details: tenderness; no swelling Results AMB Hemoglobin A1c AMB Hemoglobin A1c 7.1 % Last Edit by Jojo Franklin on 11/06/23 10:14 Assessment and Plan Assessment & Plan (1) COPD (chronic obstructive pulmonary disease): Comment: severe COPD on PFTs with partial reversibility - 11/2011 - sees Dr. Laws Code(s): J44.9 - Chronic obstructive pulmonary disease, unspecified Qualifiers: COPD type: unspecified COPD Qualified Code(s): J44.9 - Chronic obstructive pulmonary disease, unspecified Plan: Stable/controlled currently although patient states that he has had to use his Albuterol inhaler more often than usual lately Continue Incruse Ellipta 62.5 mcg 1 inhalation once a day Is also currently on Symbicort 160-4.5 mcg 2 puffs BID but was informed by his insurance company recently that they will no longer continue to cover his Symbicort inhaler Will try switching him over to Breo Ellipta 200-25 mcg/dose 1 inhalation QD Continue Ventolin HFA 2 puffs every 4 to 6 hours as needed Patient also has Albuterol solution that he uses with his nebulizer every 6 hours when needed Follow up with pulmonary (Dr. Laws) as scheduled (2) Diabetes mellitus: Code(s): E11.9 - Type 2 diabetes mellitus without complications Qualifiers: Diabetes mellitus type: type 2 Diabetes mellitus prison insulin use: without buttermilk drier operator use Diabetes mellitus complication status: without complication Qualified Code(s): E11.9 - Type 2 diabetes mellitus without complications Plan: In-office HgbA1c done today is at 7.1% (HgbA1c was at 6.3% a few months ago) - goal is <7.0% Reinforced diabetic diet Continue Tradjenta 5 mg QD May need to consider starting him on some additional meds for his diabetes next time if he cannot get his gycemic control back down (3) Elevated blood pressure reading: Code(s): R03.0 - Elevated blood-pressure reading, without diagnosis of hypertension Plan: His BP is again elevated today - states that he has been under a lot of stress and feels that his BP is up because of this Goal is systolic BP of at least 140 to 150 mm or less Reinforced low sodium diet Patient is reminded to monitor his blood pressure regularly (4) Dyslipidemia: Code(s): E78.5 - Hyperlipidemia, unspecified Plan: Was not able to get his follow up labs done prior to his visit today Reinforced low cholesterol diet Will recheck his fasting lipids and labs in 4 months for follow up - will just have patient use his current orders (updated) for his next lab draw (5) Vitamin D deficiency: Code(s): E55.9 - Vitamin D deficiency, unspecified Plan: Continue Vitamin D3 2000 units QD (6) Degenerative arthritis of cervical spine: Code(s): M47.812 - Spondylosis without myelopathy or radiculopathy, cervical region Qualifiers: Spinal osteoarthritis complication: unspecified spinal osteoarthritis Qualified Code(s): M47.812 - Spondylosis without myelopathy or radiculopathy, cervical region Plan: X-rays of the cervical spine done back in 2013 revealed degenerative spondylosis and degenerative disc disease at C5-C6 and C6-C7 Repeat cervical spine x-rays done a few months ago came out as a limited cervical spine study with lack of visualization of the lower aspect of C5 through C7, but no acute fracture or prevertebral soft tissue swelling was appreciated on this limited study. Continue Tramadol 50 mg TID PRN and Tizanidine 4 mg TID PRN (7) Osteoarthritis: Comment: involving both knees and both hips Code(s): M19.90 - Unspecified osteoarthritis, unspecified site Qualifiers: Osteoarthritis location: unspecified site Osteoarthritis type: primary Qualified Code(s): M19.91 - Primary osteoarthritis, unspecified site Plan: Continue Tramadol 50 mg TID PRN for pain May need to see orthopedics again if his joint pains get worse (8) Insomnia: Code(s): G47.00 - Insomnia, unspecified Qualifiers: Insomnia type: unspecified Qualified Code(s): G47.00 - Insomnia, unsp ecified Plan: Sleep hygiene reinforced Was started on Trazodone 50 mg Q HS PRN at his last visit but states that it did not help so he stopped taking it after a while (9) Stress: Code(s): F43.9 - Reaction to severe stress, unspecified Plan: Patient still reports experiencing increased stress at home, primarily from family issues, and patient feels that this is a major reason for his elevated BP often Have offered to start him on some Rx previously to help - patient declined at the time but is now agreeable to try something to help with his mood Will start him for now on Sertraline 50 mg QD (10) Obesity (BMI 30-39.9): Code(s): E66.9 - Obesity, unspecified Plan: Reinforced diet; exercise and weight loss is unrealistic given patient's COPD and limited activity tolerance Plan Follow up in 4 months Orders: Orders AMB Hemoglobin A1c Today Z13.9 - Encounter for screening, unspecified Medications: New sertraline 50 mg PO DAILY 90 days 90 tabs 1RF Breo Ellipta 200-25 mcg/dose (fluticasone furoate-vilanterol) STOP Symbicort - no longer covered by insurance 1 inh inhalation DAILY 60 ea 5RF NS Coding Level of Care Code Est Pt Level 4 (42536) Diagnoses Chronic obstructive pulmonary disease, unspecified COPD type J44.9 COPD type: unspecified COPD Type 2 diabetes mellitus without complication, without long-term current use of insulin E11.9 Diabetes mellitus type: type 2 Diabetes mellitus buttermilk drier operator insulin use: without buttermilk drier operator use Diabetes mellitus complication status: without complication Elevated blood pressure reading R03.0 Dyslipidemia E78.5 Vitamin D deficiency E55.9 Osteoarthritis of cervical spine, unspecified spinal osteoarthritis complication status M47.812 Spinal osteoarthritis complication: unspecified spinal osteoarthritis Primary osteoarthritis, unspecified site M19.91 Osteoarthritis location: unspecified site Osteoarthritis type: primary Insomnia, unspecified type G47.00 Insomnia type: unspecified Stress F43.9 Obesity (BMI 30-39.9) E66.9
[2023-11-06 09:37] VITALS: BP 122/80; PULSE 102; O2SAT 94; BMI 33.6
== END 2023-11-06 10:32 | disposition home or self-care (01) ==
PROVIDERS: PCP Internal Medicine; Visit Provider Internal Medicine
DX: J44.9 Chronic obstructive pulmonary disease, unspecified (principal); E11.9 Type 2 diabetes mellitus without complications; R03.0 Elevated blood-pressure reading, without diagnosis of hypertension; E78.5 Hyperlipidemia, unspecified; E55.9 Vitamin D deficiency, unspecified; M47.812 Spondylosis without myelopathy or radiculopathy, cervical region; M19.91 Primary osteoarthritis, unspecified site; G47.00 Insomnia, unspecified; F43.9 Reaction to severe stress, unspecified; E66.9 Obesity, unspecified
CPT/HCPCS: 83036; 99214

== ENCOUNTER 2024-06-14 06:32 | Outpatient (REF) | payer MEDICARE, SELFPAY ==
[2024-06-14 11:20] LABS: Appearance Urine Clear; Color Urine Yellow; Glucose Urine UA Negative (Negative); Leukocyte Esterase Urine Negative (Negative); Nitrite Urine Negative (Negative); Specific Gravity - Urine <= 1.005 (1.005-1.025); UMIC TRIGGER UACC YES; Urine Blood Trace (Negative); Urine Ketones Negative (Negative); Urine Protein Negative (Neg-Trace)
[2024-06-14 11:25] LABS: MANUAL DIFF FLAG NO
[2024-06-14 11:27] LABS: Bacteria Urine None Seen (None Seen); Hyaline Casts Urine 0-2 /LPF (0-2); RBC Urine 0-2 /HPF (0-2); Squamous Epithelial Cell Urine 0-2 /HPF (0-2); WBC Urine 0-5 /HPF (0-5)
[2024-06-14 11:29] LABS: Basophils Absolute Auto 0.1 X10*3/uL (0.0-0.2); Basophils Percent Auto 0.7 % (0-2); Eosinophils Absolute Auto 0.3 X10*3/uL (0.0-0.4); Eosinophils Percent Auto 2.7 % (0-4); Hematocrit 48.9 % (42.0-52.0); Hemoglobin 16.6 g/dl (14.0-18.0); Imm Gran Abs Auto 0.05 X10*3/uL (0.00-0.03); Imm Gran Pct Auto 0.5 % (0.0-0.4); Lymphocytes Percent Auto 20.1 % (20-40); Mean Corpuscular HGB Conc 33.9 g/dl (31.0-36.0); Mean Corpuscular Volume 94.4 fL (80.0-98.0); Mean Platelet Volume 9.7 fL (9.4-12.4); Monocytes Absolute Auto 0.7 X10*3/uL (0.1-1.2); Monocytes Percent Auto 6.9 % (2-11); Neutrophils Absolute Auto 6.8 x10*3/uL (2.0-8.3); Neutrophils Percent Auto 69.1 % (45-73); Platelet Count 236 X10*3/uL (160-400); Red Blood Count 5.18 X10*6/uL (4.60-5.80); Red Cell Distribution Width 13.1 % (11.0-16.0); White Blood Count 9.8 X10*3/uL (4.8-10.8)
[2024-06-14 11:50] LABS: Alanine Aminotransferase 19 U/L (0-40); Albumin Level 4.7 g/dL (3.5-5.0); Alkaline Phosphatase 86 U/L (39-117); Anion Gap 16 (12-20); Aspartate Amino Transferase 20 U/L (5-37); Bilirubin Total 1.3 mg/dL (0.0-1.0); Blood Urea Nitrogen 12 mg/dL (9-16); Calcium 10.2 mg/dL (8.4-10.2); Carbon Dioxide 25 mmol/L (22-29); Chloride 100 mmol/L (96-108); Cholesterol 185 mg/dL (<200); Estimated Glomerular Filt Rate > 60; Glucose Fasting 119 mg/dL (60-99); HDL Cholesterol 72 mg/dL (>40); LDL Cholesterol Calculated 100 mg/dL (<100); Potassium 4.1 mmol/L (3.3-5.1); Sodium 137 mmol/L (135-145); Total Protein 7.8 g/dL (6.5-8.0); Triglycerides 65 mg/dL (<150)
[2024-06-14 11:55] LABS: Estimated Average Glucose 126 mg/dL
[2024-06-14 12:07] LABS: TSH reflex Free T4 1.08 uIU/mL (0.32-4.0); Vitamin D 25-OH Total 29.7 ng/mL (>30)
[2024-06-14 12:07] LABS: Creatinine Urine 24.94 mg/dL; Microalbumin Urine < 5.0 mg/L
== END 2024-06-14 06:33 | disposition home or self-care (01) ==
LOC: HO.HMGCLDS 06:32
PROVIDERS: PCP Internal Medicine; Visit Provider Internal Medicine
DX: E11.9 Type 2 diabetes mellitus without complications (principal); I10 Essential (primary) hypertension; E78.00 Pure hypercholesterolemia, unspecified; E55.9 Vitamin D deficiency, unspecified
CPT/HCPCS: 36415; 80053; 80061; 81001; 82043; 82306; 82570; 83036; 84443; 85025

== ENCOUNTER 2024-06-16 12:53 | Outpatient (AMB) | payer MEDICARE, SELFPAY ==
--- NOTE | 2024-06-16 12:54 | MHC.PC.OV ---
Vital Signs 06/16/24 12:56 Height 5 ft 6 in Weight 194 lb 6 oz BMI 31.4 BP 140/70 H Blood Pressure Location Lt brachial Position Sitting Pulse 66 Pulse Source Pulse Oximeter Pulse Oximetry (%) 96 Oxygen Delivery Method Room Air Intake Visit Reasons: COPD, DM, HTN, hyperlipidemia, depression Intake Note: Patient is here to follow up on COPD, DM, HTN, HLD, Depression. County Adviser Required: No Pickler Helper: Not Required per policy Accompanied by: Self / Same As Patient Allergies cortisone Allergy (Unknown, Verified 06/16/24 13:18) Unknown penicillin V Allergy (Unknown, Verified 06/16/24 13:18) rash/hyperventilation, hives tramadol Allergy (Unknown, Verified 06/16/24 13:18) rash metformin Adverse Reaction (Intermediate, Verified 06/16/24 13:18) abdominal pain Medication List - Last Reconciled 06/16/24 by Jack Gomez MD albuterol sulfate 2.5 mg (3 mL) continuous nebulization Q6H PRN 90 days Breo Ellipta 200-25 mcg/dose (fluticasone furoate-vilanterol) 1 inh inhalation DAILY NS budesonide 180 mcg/actuation (Pulmicort Flexhaler) 2 inhalations inhalation BID cholecalciferol (vitamin D3) 50 mcg PO DAILY 90 days linagliptin 5 mg PO DAILY 90 days mometasone 200 mcg/actuation (Asmanex HFA) 2 puffs inhalation BID sertraline 50 mg PO DAILY 90 days tiotropium bromide 2.5 mcg/actuation (Spiriva Respimat) 2 inhalations inhalation QAM tramadol 50 mg PO TID PRN 30 days trazodone 50 mg PO BEDTIME PRN 30 days Ventolin HFA 90 mcg/actuation (albuterol sulfate) 2 puffs PO Q4H 30 days NS Tobacco use date assessed: 06/16/24 Fall risk assessment: No Falls in past year Last assessed Fall Risk: 06/16/24 Dental Screening Dental Screen Date: 06/16/24 Did you have a dental visit in the last 12 months?: No Did you have a dental problem in the last 6 months where you did not have access to dental care?: No Was dental information given to patient?: No HPI COPD, DM, HTN, hyperlipidemia, depression HPI Details Patient comes in today for his follow up visit States that he has been experiencing frequent bouts of exacerbation of his COPD again lately, with his chest feeling tight often and notes that he gets vry SOB even with minimal exertion lately He denies any fever or sore throat; denies any headaches or dizziness Denies any chest pains No nausea /vomiting, no abdominal pain No change in bowel habits noted He had his follow up labs done a couple of days ago - to discuss his results Adds that he has noticed some decline in his vision lately and would like to get a referral to see an eye doctor to get his vision checked out [facility] Medical History (Updated 06/22/24 @ 23:23 by Jack Gomez MD) Anxiety Vitamin D deficiency Left elbow pain Elevated blood pressure reading Degenerative arthritis of cervical spine Right rotator cuff tear arthropathy Osteoarthritis Dyslipidemia Obesity (BMI 30-39.9) Degenerative joint disease of right knee Diabetes mellitus COPD (chronic obstructive pulmonary disease) Surgical History History of elbow surgery H/O right wrist surgery History of hernia repair S/P LASIK surgery of both eyes History of vasectomy Family History Father Diabetes Mother Medical history unknown Other Substance abuse Social History Housing: House Alcohol intake: former Patient Tobacco Use Status: Former Tobacco user e-Cigarette/Vaping Use: Never Used Second Hand Smoke Exposure: Yes service: Yes ([employer]) Current occupational status: retired Cognitive needs: No Hearing needs: No Vision needs: Yes (Glasses) Questionnaire PHQ-9 Over the last 2 weeks, how often have you been bothered by any of the following problems? 1. Little interest or pleasure in doing things: several days 2. Feeling down, depressed, or hopeless: nearly every day 3. Trouble falling or staying asleep, or sleeping too much: more than half the days 4. Feeling tired or having little energy: several days 5. Poor appetite or overeating: nearly every day 6. Feeling bad about yourself - or that you are a failure or have let yourself or your family down: more than half the days 7. Trouble concentrating on things, such as reading the newspaper or watching television: not at all 8. Moving or speaking so slowly that other people could have noticed. Or the opposite - being so fidgety or restless that you have been moving around a lot more than usual: not at all 9. Thoughts that you would be better off or of hurting yourself in some way: several days Total score: 13 Depression Screening Interpretation: Positive Depression Screening Follow-up: Existing condition and In treatment Depression Screening Done: Yes 42201 - PHQ-9 Billing: Yes Source: Developed by Drs. Juan Manuel Maldonado, Brigitte Santiago, Khurram Winkler and colleagues, with an educational serafin from [employer]. Thrive Questionnaire Date Thrive assessed: 06/16/24 I am a: Patient What is your living situation today?: I have a steady place to live Within the past 12 months, did the food you bought not last and you didn't have the money to get more?: Never true Within the past 12 months, did you worry whether your food would run out before you got money to buy more?: Never true Do you have trouble paying for medicines?: No Do you have trouble getting transportation to medical appointments?: No Do you have trouble paying your heating and electricity bill?: No Do you have trouble taking care of your child, family member or friend?: No Do you have trouble with day-to-day activities such as bathing, preparing meals, shopping, managing finances, etc.?: No Are you currently unemployed and looking for a job?: No Are you interested in more education?: No Currently or been in a relationship where the following occur: No concerns reported THRIVE Score: 0 AUDIT C Alcohol Use Questionnaire (AUDIT-C) 1. How often do you have a drink containing alcohol?: Never 3. How often do you have six or more drinks on one occasion?: Never Total Score: 0 Score Reviewed/Action Taken: Yes MONSTER-7 AMB Questionnaire MONSTER-7 Date MONSTER - 7 assessed: 06/16/24 Feeling nervous, anxious, or on edge: 2 = More than half the days Not being able to stop or control worryin = Several days Worrying too much about different things: 1 = Several days Trouble relaxin = Several days Being so restless that it is hard to sit still: 1 = Several days Becoming easily annoyed or irritable: 2 = More than half the days Feeling afraid as if something awful might happen: 0 = Not at all Total MONSTER-7 score (0-4 normal; 5-9 mild; 10-14 moderate; 15-21 severe): 8 Source: Developed by Drs. Juan Manuel Maldonado, Brigitte Santiago, Khurram Winkler and colleagues, with an educational serafin from [employer]. Review of Systems Const Denies chills, Reports difficulty sleeping, Reports fatigue, Denies fever(s) and Denies headache(s) Eyes Reports blurry vision ENT Denies dysphagia, Denies dizziness, Denies otalgia, Denies headache(s), Reports neck pain (chronic), Denies odynophagia, Denies sinus pain and Denies sore throat Card Denies chest pain, Denies palpitations and Reports dyspnea on exertion (increasing lately) Resp Reports chest congestion (chest feels tight often lately), Reports cough (on and off, non-productive), Reports dyspnea on exertion (increasing lately) and Denies wheezing GI Denies abdominal pain, Denies constipation, Denies dysphagia, Denies heartburn, Denies diarrhea, Denies nausea, Denies odynophagia and Denies vomiting Denies dysuria, Denies nocturia and Denies urinary frequency Musc Reports arthralgias (involving both knees and hips; increased over left thumb recently), Reports neck pain (chronic) and Reports stiffness Skin/Breast Denies rash Neuro Denies dizziness and Denies headache(s) Psych Reports anxiety, Reports depression and Denies suicidal ideation Endo Reports fatigue and Denies palpitations Aller/Immun Denies wheezing Physical exam (Primary Care) Vital Signs: Last Vital Signs Pulse 66 06/16/24 12:56 BP 140/70 H 06/16/24 12:56 Pulse Ox 96 06/16/24 12:56 Oxygen Delivery Method Room Air 06/16/24 12:56 BMI result Body Mass Index 31.4 Tobacco/Smoking Status: Tobacco use Status Tobacco use date assessed 06/16/24 06/16/24 13:05 Patient Tobacco Use Status Former Tobacco user 06/16/24 13:05 e-Cigarette/Vaping Use Never Used 06/16/24 13:05 PHQ-9: PHQ-9 Score PHQ-9: Total score 13 06/16/24 13:19 Depression Screening Interpretation: Positive Depression Screening Follow-up: Existing condition and In treatment Thrive Assessment: Date of Thrive Assessment Date Thrive assessed 06/16/24 06/16/24 13:05 Currently or been in a relationship where the following occur: No concerns reported Const General: no acute distress and alert HENMT Ears: TM's normal bilaterally and EAC's normal Throat: Yes posterior oropharynx normal and Yes tonsils normal (no TP congestion noted) Neck Neck: Yes no lymphadenopathy and Yes supple Thyroid: Thyroid normal Resp Auscultation: no rales, rhonchi (occasional) throughout, no wheezes and diminished lung sounds bilateral Cardio Rate: regular rate Rhythm: regular rhythm Heart sounds: no murmurs GI Palpation (GI): Soft to palpation and nontender Auscultation: normal bowel sounds General: Yes no CVA tenderness Back/Spine/Pelvis Back: no CVA tenderness Cervical Spine: Cervical spine tenderness (chronic) Thoracic/Lumbar Spine: No lumbar spinal tenderness Extrem General: Yes no clubbing, cyanosis or edema Right lower extremity: knee Details: tenderness; no swelling Left lower extremity: knee Details: tenderness; no swelling Results Reviewed Results Reviewed: Laboratory Tests 06/14/24 06/14/24 06:35 06:40 WBC 9.8 Hgb 16.6 Hct 48.9 Plt Count 236 Sodium 137 Potassium 4.1 Creatinine 0.86 Estimated GFR > 60 Fasting Glucose 119 H Hemoglobin A1c % 6.0 Calcium 10.2 D AST 20 ALT 19 Triglycerides 65 Cholesterol 185 LDL Cholesterol, Calc 100 H HDL Cholesterol 72 25-OH Vitamin D Total 29.7 L TSH 1.08 Urine pH 6.0 Ur Specific [place] <= 1.005 Urine Protein Negative Urine Glucose (UA) Negative Urine Blood Trace H Urine Nitrite Negative Ur Leukocyte Esterase Negative Assessment and Plan Assessment & Plan (1) COPD (chronic obstructive pulmonary disease): Comment: severe COPD on PFTs with partial reversibility - 11/2011 - sees Dr. Laws Code(s): J44.9 - Chronic obstructive pulmonary disease, unspecified Qualifiers: COPD type: unspecified COPD Qualified Code(s): J44.9 - Chronic obstructive pulmonary disease, unspecified Plan: Patient states that he has had to use his Albuterol inhaler more often than usual lately Continue Breo Ellipta 200-25 mcg 1 inhalation once a day and Spiriva Respimat 2.5 mcg 2 inhalations QD Continue Ventolin HFA 2 puffs every 4 to 6 hours as needed; he also has Albuterol solution that he uses with his nebulizer every 6 hours when needed He used to see Dr. Laws for pulmonary follow up but has not been seen in a while - will refer him back to [facility] [place] [facility] for continuing management (2) Diabetes mellitus: Code(s): E11.9 - Type 2 diabetes mellitus without complications Qualifiers: Diabetes mellitus complication status: without complication Diabetes mellitus keno terminal operator insulin use: without mcfp use Diabetes mellitus type: type 2 Qualified Code(s): E11.9 - Type 2 diabetes mellitus without complications Plan: His HgbA1c was at 6.0% on his labs done a couple of days ago (in-office HgbA1c was at 7.1% when previously checked in 2022) - goal is <7.0% Reinforced diabetic diet Continue Tradjenta 5 mg QD (3) Elevated blood pressure reading: Code(s): R03.0 - Elevated blood-pressure reading, without diagnosis of hypertension Plan: His BP is again elevated today, likely because of his frequent exertional dyspnea and chest tightness lately Reinforced low sodium diet Patient is reminded to monitor his blood pressure regularly (4) Dyslipidemia: Code(s): E78.5 - Hyperlipidemia, unspecified Plan: Results of his labs done a couple of days ago reviewed and discussed with patient Reinforced low cholesterol diet Will recheck his fasting lipids and labs in 4 months for follow up - will just have patient use his current orders (updated) for his next lab draw (5) Vitamin D deficiency: Code(s): E55.9 - Vitamin D deficiency, unspecified Plan: Continue Vitamin D3 2000 units QD (6) Degenerative arthritis of cervical spine: Code(s): M47.812 - Spondylosis without myelopathy or radiculopathy, cervical region Qualifiers: Spinal osteoarthritis complication: unspecified spinal osteoarthritis Qualified Code(s): M47.812 - Spondylosis without myelopathy or radiculopathy, cervical region Plan: X-rays of the cervical spine done back in 2013 revealed degenerative spondylosis and degenerative disc disease at C5-C6 and C6-C7 Repeat cervical spine x-rays done a few months ago came out as a limited cervical spine study with lack of visualization of the lower aspect of C5 through C7, but no acute fracture or prevertebral soft tissue swelling was appreciated on this limited study. Continue Tramadol 50 mg TID PRN and Tizanidine 4 mg TID PRN (7) Osteoarthritis: Comment: involving both knees and both hips Code(s): M19.90 - Unspecified osteoarthritis, unspecified site Qualifiers: Osteoarthritis location: unspecified site Osteoarthritis type: primary Qualified Code(s): M19.91 - Primary osteoarthritis, unspecified site Plan: Continue Tramadol 50 mg TID PRN for pain May need to see orthopedics again if his joint pains get worse (8) Visual impairment: Code(s): H54.7 - Unspecified visual loss Plan: Will for him to ophthalmology for further evaluation and management (9) Insomnia: Code(s): G47.00 - Insomnia, unspecified Qualifiers: Insomnia type: unspecified Qualified Code(s): G47.00 - Insomnia, unspecified Plan: Sleep hygiene reinforced He was started on Trazodone 50 mg Q HS PRN at his last visit but states that it did not help so he stopped taking it after a while (10) Anxiety: Code(s): F41.9 - Anxiety disorder, unspecified Plan: Patient still reports experiencing increased stress at home, primarily from family issues, and patient feels that this is a major reason for his elevated BP often Continue Sertraline 50 mg QD (11) Obesity (BMI 30-39.9): Code(s): E66.9 - Obesity, unspecified Plan: Reinforced diet; exercise and weight loss is unrealistic given patient's COPD and limited activity tolerance Plan Follow up in 4 months Orders: Orders Hemoglobin A1c 4 Months E11.9 - Type 2 diabetes mellitus without complications Complete Blood Count Auto Diff 4 Months D64.9 - Anemia, unspecified Comprehensive [place]. Panel Fast 4 Months E78.00 - Pure hypercholesterolemia, unspecified Lipid Panel 4 Months E78.00 - Pure hypercholesterolemia, unspecified Referrals Ophthalmology Referral H54.7 - Unspecified visual loss Pulmonology Referral J44.9 - Chronic obstructive pulmonary disease, unspecified Coding Level of Care Code Est Pt Level 4 (86599) Diagnoses Chronic obstructive pulmonary disease, unspecified COPD type J44.9 COPD type: unspecified COPD Type 2 diabetes mellitus without complication, without long-term current use of insulin E11.9 Diabetes mellitus complication status: without complication Diabetes mellitus keno terminal operator insulin use: without mcfp use Diabetes mellitus type: type 2 Elevated blood pressure reading R03.0 Dyslipidemia E78.5 Vitamin D deficiency E55.9 Osteoarthritis of cervical spine, unspecified spinal osteoarthritis complication status M47.812 Spinal osteoarthritis complication: unspecified spinal osteoarthritis Primary osteoarthritis, unspecified site M19.91 Osteoarthritis location: unspecified site Osteoarthritis type: primary Visual impairment H54.7 Insomnia, unspecified type G47.00 Insomnia type: unspecified Anxiety F41.9 Obesity (BMI 30-39.9) E66.9
[2024-06-16 12:56] VITALS: BP 140/70; PULSE 66; O2SAT 96; BMI 31.4
== END 2024-06-16 13:29 | disposition home or self-care (01) ==
PROVIDERS: PCP Internal Medicine; Visit Provider Internal Medicine
DX: J44.9 Chronic obstructive pulmonary disease, unspecified (principal); E11.9 Type 2 diabetes mellitus without complications; E78.5 Hyperlipidemia, unspecified; E55.9 Vitamin D deficiency, unspecified; M47.812 Spondylosis without myelopathy or radiculopathy, cervical region; M19.91 Primary osteoarthritis, unspecified site; H54.7 Unspecified visual loss; G47.00 Insomnia, unspecified; F41.9 Anxiety disorder, unspecified
CPT/HCPCS: 99214

== ENCOUNTER 2024-10-27 08:35 | Outpatient (AMB) | payer MEDICARE, SELFPAY ==
[2024-10-27 08:41] VITALS: BP 132/84; PULSE 107; O2SAT 94; BMI 30.9
--- NOTE | 2024-10-27 08:41 | A.OFFPC_ITS ---
Vital Signs 10/27/24 08:41 Height 5 ft 6 in Weight 191 lb 4 oz BMI 30.9 BP 132/84 Blood Pressure Location Lt brachial Position Sitting Pulse 107 H Pulse Source Pulse Oximeter Pulse Oximetry (%) 94 Oxygen Delivery Method Room Air Intake Visit Reasons: 4 Month F/U Drawing Tracer Required: No Accompanied by: Self / Same As Patient Allergies cortisone Allergy (Unknown, Verified 10/27/24 09:11) Unknown penicillin V Allergy (Unknown, Verified 10/27/24 09:11) rash/hyperventilation, hives tramadol Allergy (Unknown, Verified 10/27/24 09:11) rash metformin Adverse Reaction (Intermediate, Verified 10/27/24 09:11) abdominal pain Medication List - Last Reconciled 10/27/24 by Jack Gomez MD albuterol sulfate 2.5 mg (3 mL) continuous nebulization Q6H PRN 90 days budesonide 180 mcg/actuation (Pulmicort Flexhaler) 2 inhalations inhalation BID cholecalciferol (vitamin D3) 50 mcg PO DAILY 90 days sertraline 50 mg PO DAILY 90 days tiotropium bromide 2.5 mcg/actuation (Spiriva Respimat) 2 inhalations inhalation QAM tramadol 50 mg PO TID PRN 30 days Ventolin HFA 90 mcg/actuation (albuterol sulfate) 2 puffs PO Q4H 30 days NS Tobacco use date assessed: 10/27/24 Fall risk assessment: No Falls in past year Last assessed Fall Risk: 10/27/24 Dental Screening Dental Screen Date: 10/27/24 Did you have a dental visit in the last 12 months?: No Did you have a dental problem in the last 6 months where you did not have access to dental care?: No Was dental information given to patient?: No HPI 4 Month F/U HPI Details Patient comes in today for his follow up visit States that he's had increased cough/congestion for the past 3 weeks Relates (+) chest tightness at times and states that he coughs up thick yellowish phlegm often He denies any fever or sore throat; denies any headaches or dizziness Denies any chest pains No nausea/vomiting, no abdominal pain No change in bowel habits noted He has not yet seen pulmonary for his COPD (was referred back at his last visit) as he advised them that he will call them back to schedule his appt when they first contacted him but he has not yet done so He also was not able to get his follow up labs done prior to his appointment today [facility] Medical History Anxiety Vitamin D deficiency Left elbow pain Elevated blood pressure reading Degenerative arthritis of cervical spine Right rotator cuff tear arthropathy Osteoarthritis Dyslipidemia Obesity (BMI 30-39.9) Degenerative joint disease of right knee Diabetes mellitus COPD (chronic obstructive pulmonary disease) Surgical History History of elbow surgery H/O right wrist surgery History of hernia repair S/P LASIK surgery of both eyes History of vasectomy Family History Father Diabetes Mother Medical history unknown Other Substance abuse Social History Housing: House Alcohol intake: former Patient Tobacco Use Status: Former Tobacco user e-Cigarette/Vaping Use: Never Used Second Hand Smoke Exposure: Yes service: Yes ([employer]) Current occupational status: retired Cognitive needs: No Hearing needs: No Vision needs: Yes (Glasses) Questionnaire PHQ-9 Over the last 2 weeks, how often have you been bothered by any of the following problems? 1. Little interest or pleasure in doing things: several days 2. Feeling down, depressed, or hopeless: nearly every day 3. Trouble falling or staying asleep, or sleeping too much: more than half the days 4. Feeling tired or having little energy: several days 5. Poor appetite or overeating: nearly every day 6. Feeling bad about yourself - or that you are a failure or have let yourself or your family down: more than half the days 7. Trouble concentrating on things, such as reading the newspaper or watching television: not at all 8. Moving or speaking so slowly that other people could have noticed. Or the opposite - being so fidgety or restless that you have been moving around a lot more than usual: not at all 9. Thoughts that you would be better off or of hurting yourself in some way: several days Total score: 13 Depression Screening Interpretation: Positive Depression Screening Follow-up: Existing condition and In treatment Depression Screening Done: Yes 42113 - PHQ-9 Billing: Yes Source: Developed by Drs. Juan Manuel Maldonado, Brigitte Santiago, Khurram Winkler and colleagues, with an educational serafin from [employer]. Thrive Questionnaire Date Thrive assessed: 10/27/24 I am a: Patient What is your living situation today?: I have a steady place to live Within the past 12 months, did the food you bought not last and you didn't have the money to get more?: Never true Within the past 12 months, did you worry whether your food would run out before you got money to buy more?: Never true Do you have trouble paying for medicines?: No Do you have trouble getting transportation to medical appointments?: No Do you have trouble paying your heating and electricity bill?: No Do you have trouble taking care of your child, family member or friend?: No Do you have trouble with day-to-day activities such as bathing, preparing meals, shopping, managing finances, etc.?: No Are you currently unemployed and looking for a job?: No Are you interested in more education?: No Please select the resources that you would like help with: None Currently or been in a relationship where the following occur: No concerns reported THRIVE Score: 0 AUDIT C Alcohol Use Questionnaire (AUDIT-C) 1. How often do you have a drink containing alcohol?: 2-4 times a month ( ) 3. How often do you have six or more drinks on one occasion?: Never Total Score: 2 Score Reviewed/Action Taken: Yes MONSTER-7 AMB Questionnaire MONSTER-7 Date MONSTER - 7 assessed: 10/27/24 Feeling nervous, anxious, or on edge: 2 = More than half the days Not being able to stop or control worryin = Several days Worrying too much about different things: 1 = Several days Trouble relaxin = Several days Being so restless that it is hard to sit still: 1 = Several days Becoming easily annoyed or irritable: 2 = More than half the days Feeling afraid as if something awful might happen: 0 = Not at all Total MONSTER-7 score (0-4 normal; 5-9 mild; 10-14 moderate; 15-21 severe): 8 Source: Developed by Drs. Juan Manuel Maldonado, Brigitte Santiago, Khurram Winkler and colleagues, with an educational serafin from [employer]. Review of Systems Const Denies chills, Reports difficulty sleeping, Reports fatigue, Denies fever(s) and Denies headache(s) ENT Denies dysphagia, Denies dizziness, Denies otalgia, Denies headache(s), Reports neck pain (chronic), Denies odynophagia and Denies sore throat Card Denies chest pain, Denies palpitations and Reports dyspnea on exertion Resp Reports chest congestion (chest feels tight often lately), Reports cough (recurrent; coughs up thick yellowish phlegm often), Denies hemoptysis, Reports dyspnea on exertion and Denies wheezing GI Denies abdominal pain, Denies constipation, Denies dysphagia, Denies heartburn, Denies diarrhea, Denies nausea, Denies odynophagia and Denies vomiting Denies dysuria, Denies nocturia and Denies urinary frequency Musc Reports arthralgias (involving both knees and hips; increased over left thumb recently), Reports neck pain (chronic) and Reports stiffness Skin/Breast Denies rash Neuro Denies dizziness and Denies headache(s) Psych Reports anxiety and Reports depression Endo Reports fatigue and Denies palpitations Aller/Immun Denies wheezing Physical exam (Primary Care) Vital Signs: Last Vital Signs Pulse 107 H 10/27/24 08:41 BP 132/84 10/27/24 08:41 Pulse Ox 94 10/27/24 08:41 Oxygen Delivery Method Room Air 10/27/24 08:41 BMI result Body Mass Index 30.9 Tobacco/Smoking Status: Tobacco use Status Tobacco use date assessed 10/27/24 10/27/24 08:44 Patient Tobacco Use Status Former Tobacco user 10/27/24 08:44 e-Cigarette/Vaping Use Never Used 10/27/24 08:44 PHQ-9: PHQ-9 Score PHQ-9: Total score 13 10/27/24 09:13 Depression Screening Interpretation: Positive Depression Screening Follow-up: Existing condition and In treatment Thrive Assessment: Date of Thrive Assessment Date Thrive assessed 10/27/24 10/27/24 08:44 Currently or been in a relationship where the following occur: No concerns reported Const General: no acute distress and alert HENMT Ears: TM's normal bilaterally and EAC's normal Throat: Yes posterior oropharynx normal and Yes tonsils normal (no TP congestion noted) Neck Neck: Yes supple and No lymphadenopathy Thyroid: Thyroid normal Resp Auscultation: no rales, rhonchi (scattered) throughout, no wheezes and diminished lung sounds bilateral Cardio Rate: regular rate Rhythm: regular rhythm Heart sounds: no murmurs GI Palpation (GI): Soft to palpation and nontender Auscultation: normal bowel sounds General: Yes no CVA tenderness Back/Spine/Pelvis Back: no CVA tenderness Cervical Spine: Cervical spine tenderness (chronic) Thoracic/Lumbar Spine: No lumbar spinal tenderness Extrem General: Yes no clubbing, cyanosis or edema Right lower extremity: knee Details: tenderness; no swelling Left lower extremity: knee Details: tenderness; no swelling Results AMB Hemoglobin A1c AMB Hemoglobin A1c 6.1 % Last Edit by OSNY Ovalles on 10/27/24 09 :06 Results Reviewed Results Reviewed: Laboratory Last Values Hgb A1c (Clinic) 6.1 % (4.0-6.0) H 10/27/24 08:55 Coding Level of Care Code Est Pt Level 4 (30724) Diagnoses COPD with exacerbation J44.1 Type 2 diabetes mellitus without complication, without long-term current use of insulin E11.9 Diabetes mellitus complication status: without complication Diabetes mellitus parts counterman insulin use: without assisted use Diabetes mellitus type: type 2 Elevated blood pressure reading R03.0 Dyslipidemia E78.5 Vitamin D deficiency E55.9 Osteoarthritis of cervical spine, unspecified spinal osteoarthritis complication status M47.812 Spinal osteoarthritis complication: unspecified spinal osteoarthritis Primary osteoarthritis, unspecified site M19.91 Osteoarthritis location: unspecified site Osteoarthritis type: primary Insomnia, unspecified type G47.00 Insomnia type: unspecified Anxiety F41.9 Obesity (BMI 30-39.9) E66.9 Additional Codes PHQ-9 - 10128 - PHQ-9 Billing: Yes ([id number]) Assessment & Plan Assessment & Plan (1) COPD with exacerbation: Code(s): J44.1 - Chronic obstructive pulmonary disease with (acute) exacerbation Category: Medical Plan: Will start patient again empirically on Azithromycin QD x 5 days Have advised him to call back if he does not experience any significant improvement of his current respiratory symptoms or if his symptoms get worse over the next week or two He is also advised to reach out to pulmonary and scheduled a follow up appointment with them [facility] Continue Pulmicort Flexhaler 180 mcg 2 inhalations BID and Spiriva Respimat 2.5 mcg 2 inhalations QD and Albuterol HFA 2 inhalations Q 6 hours PRN (2) Diabetes mellitus: Code(s): E11.9 - Type 2 diabetes mellitus without complications Category: Medical Qualifiers: Diabetes mellitus complication status: without complication Diabetes mellitus parts counterman insulin use: without assisted use Diabetes mellitus type: type 2 Qualified Code(s): E11.9 - Type 2 diabetes mellitus without complications Plan: His in-office HgbA1c done today is at 6.1% (his HgbA1c was previously at 6.0% on his labs done a few months ago) - goal is <7.0% Reinforced diabetic diet Continue Tradjenta 5 mg QD (3) Elevated blood pressure reading: Code(s): R03.0 - Elevated blood-pressure reading, without diagnosis of hypertension Category: Medical Plan: Reinforced low sodium diet Patient is reminded to continue monitoring his blood pressure regularly (4) Dyslipidemia: Code(s): E78.5 - Hyperlipidemia, unspecified Category: Medical Plan: He again was not able to get his follow up labs done prior to his appointment today Reinforced low cholesterol diet Will recheck his fasting lipids and labs in 4 months for follow up - will again just have patient use his current orders (updated) for his next lab draw (5) Vitamin D deficiency: Code(s): E55.9 - Vitamin D deficiency, unspecified Category: Medical Plan: Continue Vitamin D3 2000 units QD (6) Degenerative arthritis of cervical spine: Code(s): M47.812 - Spondylosis without myelopathy or radiculopathy, cervical region Category: Medical Qualifiers: Spinal osteoarthritis complication: unspecified spinal osteoarthritis Qualified Code(s): M47.812 - Spondylosis without myelopathy or radiculopathy, cervical region Plan: X-rays of the cervical spine done back in 2013 revealed degenerative spondylosis and degenerative disc disease at C5-C6 and C6-C7 Repeat cervical spine x-rays done a few months ago came out as a limited cervical spine study with lack of visualization of the lower aspect of C5 through C7, but no acute fracture or prevertebral soft tissue swelling was appreciated on this limited study. Continue Tramadol 50 mg TID PRN and Tizanidine 4 mg TID PRN (7) Osteoarthritis: Comment: involving both knees and both hips Code(s): M19.90 - Unspecified osteoarthritis, unspecified site Category: Medical Qualifiers: Osteoarthritis location: unspecified site Osteoarthritis type: primary Qualified Code(s): M19.91 - Primary osteoarthritis, unspecified site Plan: Continue Tramadol 50 mg TID PRN for pain May need to refer him back to orthopedics if his joint pains get worse (8) Insomnia: Code(s): G47.00 - Insomnia, unspecified Category: Medical Qualifiers: Insomnia type: unspecified Qualified Code(s): G47.00 - Insomnia, unspecified Plan: Sleep hygiene reinforced He was started on Trazodone 50 mg Q HS PRN earlier this year but states that it did not help so he stopped taking it after a while He does not wish to get any other new Rx at this time (9) Anxiety: Code(s): F41.9 - Anxiety disorder, unspecified Category: Medical Plan: Continue Sertraline 50 mg QD States that he has been doing better lately although he still has a lot of st ress at home (10) Obesity (BMI 30-39.9): Code(s): E66.9 - Obesity, unspecified Category: Medical Plan: Reinforced diet; exercise and weight loss are unrealistic given patient's COPD and limited activity tolerance Plan Follow up in 4 months Orders: Orders AMB Hemoglobin A1c Today Z13.9 - Encounter for screening, unspecified Medications: New azithromycin take 500 mg today (day 1), then 250 mg for 4 days (days 2-5) PO 6 tabs 0RF
== END 2024-10-27 09:29 | disposition home or self-care (01) ==
PROVIDERS: PCP Internal Medicine; Visit Provider Internal Medicine
DX: J44.1 Chronic obstructive pulmonary disease with (acute) exacerbation (principal); E11.9 Type 2 diabetes mellitus without complications; R03.0 Elevated blood-pressure reading, without diagnosis of hypertension; E78.5 Hyperlipidemia, unspecified; E55.9 Vitamin D deficiency, unspecified; M47.812 Spondylosis without myelopathy or radiculopathy, cervical region; M19.91 Primary osteoarthritis, unspecified site; G47.00 Insomnia, unspecified; F41.9 Anxiety disorder, unspecified; E66.9 Obesity, unspecified; Z13.9 Encounter for screening, unspecified

== ENCOUNTER → 2024-10-27 08:35 | Outpatient (BNVA) | payer MEDICARE, SELFPAY | PROVIDERS: PCP Internal Medicine; Visit Provider Internal Medicine | DX: J44.1 Chronic obstructive pulmonary disease with (acute) exacerbation (principal); E11.9 Type 2 diabetes mellitus without complications; E78.5 Hyperlipidemia, unspecified; E55.9 Vitamin D deficiency, unspecified; M47.812 Spondylosis without myelopathy or radiculopathy, cervical region; M19.91 Primary osteoarthritis, unspecified site; G47.00 Insomnia, unspecified; F41.9 Anxiety disorder, unspecified; E66.9 Obesity, unspecified | CPT/HCPCS: 83036; 96127; 99212 ==

== ENCOUNTER 2025-06-29 06:02 | Outpatient (REF) | payer MEDICARE, SELFPAY ==
[2025-06-29 10:12] LABS: MANUAL DIFF FLAG NO
[2025-06-29 10:13] LABS: Hematocrit 46.1 % (42.0-52.0); Hemoglobin 15.3 g/dl (14.0-18.0); Imm Gran Abs Auto 0.03 X10*3/uL (0.00-0.03); Imm Gran Pct Auto 0.4 % (0.0-0.4); Lymphocytes Absolute Auto 1.9 X10*3/uL (1.2-4.9); Mean Corpuscular HGB Conc 33.2 g/dl (31.0-36.0); Mean Corpuscular Hemoglobin 31.4 pg (27.0-33.0); Mean Corpuscular Volume 94.7 fL (80.0-98.0); NRBC Abs Auto 0.000 X10*3/uL (0.0-0.012); NRBC Pct Auto 0.0 /100WBC (0.0-0.2); Platelet Count 228 X10*3/uL (160-400); Red Blood Count 4.87 X10*6/uL (4.60-5.80); White Blood Count 8.0 X10*3/uL (4.8-10.8)
[2025-06-29 10:34] LABS: Alanine Aminotransferase 13 U/L (0-40); Albumin Level 4.5 g/dL (3.5-5.0); Alkaline Phosphatase 71 U/L (39-117); Anion Gap 12 (12-20); Aspartate Amino Transferase 25 U/L (5-37); Blood Urea Nitrogen 18 mg/dL (9-16); Calcium 9.2 mg/dL (8.4-10.2); Carbon Dioxide 25 mmol/L (22-29); Chloride 103 mmol/L (96-108); Cholesterol 188 mg/dL (<200); Estimated Glomerular Filt Rate > 60; HDL Cholesterol 65 mg/dL (>40); Potassium 4.0 mmol/L (3.3-5.1); Sodium 136 mmol/L (135-145); Total Protein 7.5 g/dL (6.5-8.0); Triglycerides 59 mg/dL (<150)
[2025-06-29 12:31] LABS: Hemoglobin A1C 173.2526 umol/L; Total Hemoglobin (HGBA1C) 3995.2460 umol/L
== END 2025-06-29 06:03 | disposition home or self-care (01) ==
LOC: HO.HMGCLDS 06:02
PROVIDERS: PCP Internal Medicine; Visit Provider Internal Medicine
DX: E11.9 Type 2 diabetes mellitus without complications (principal); E78.00 Pure hypercholesterolemia, unspecified; D64.9 Anemia, unspecified
CPT/HCPCS: 36415; 80053; 80061; 83036; 85025

== ENCOUNTER 2025-06-30 14:05 | Outpatient (AMB) | payer MEDICARE, SELFPAY ==
[2025-06-30 14:10] VITALS: BP 142/86; PULSE 100; O2SAT 94; BMI 30.5
--- NOTE | 2025-06-30 14:10 | A.OFFPC_ITS ---
Vital Signs 06/30/25 14:10 Height 5 ft 6 in Weight 189 lb BMI 30.5 BP 142/86 H Blood Pressure Location Lt brachial Position Sitting Pulse 100 Pulse Source Pulse Oximeter Pulse Oximetry (%) 94 Oxygen Delivery Method Room Air Intake Visit Reasons: COPD, DM, elevated BP, dyslipidemia, resched Sanitation Associate Required: No Accompanied by: Self / Same As Patient Allergies cortisone Allergy (Unknown, Verified 06/30/25 14:34) Unknown penicillin V Allergy (Unknown, Verified 06/30/25 14:34) rash/hyperventilation, hives tramadol Allergy (Unknown, Verified 06/30/25 14:34) rash metformin Adverse Reaction (Intermediate, Verified 06/30/25 14:34) abdominal pain Medication List - Last Reconciled 06/30/25 by Jack Gomez MD albuterol sulfate 2.5 mg (3 mL) continuous nebulization Q6H PRN 90 days azithromycin take 500 mg today (day 1), then 250 mg for 4 days (days 2-5) PO Breo Ellipta 200-25 mcg/dose (fluticasone furoate-vilanterol) 1 inh inhalation DAILY 30 days NS cholecalciferol (vitamin D3) 50 mcg PO DAILY 90 days Incruse Ellipta 62.5 mcg/actuation (umeclidinium) 1 inh inhalation DAILY 30 days NS sertraline 50 mg PO DAILY 90 days tramadol 50 mg PO TID PRN 30 days Ventolin HFA 90 mcg/actuation (albuterol sulfate) 2 puffs PO Q4H NS Tobacco use date assessed: 06/30/25 Fall risk assessment: 1 Fall in past year Last assessed Fall Risk: 06/30/25 Dental Screening Dental Screen Date: 06/30/25 Did you have a dental visit in the last 12 months?: No Did you have a dental problem in the last 6 months where you did not have access to dental care?: No Was dental information given to patient?: No HPI COPD, DM, elevated BP, dyslipidemia, resched HPI Details Patient comes in today for his follow up visit - he was last seen here in October 2024 States that he has been experiencing a significant increase in his (chronic) neck pain lately Adds that he has been experiencing increased pains in both shoulders as well for a while now - is not sure if his neck pain and shoulder pains are related or they are 2 separate issues that are just occurring at the same time He denies any recent injury or trauma to his neck or shoulders lately He denies any headaches or dizziness Denies any exertional chest pains or increased SOB but reports that about 1.5 weeks ago, he had a sudden onset of sharp chest pains while he was walking out from his bedroom Recalls that the pain was mostly over his central chest area but it was radiating up into both shoulders and both arms, and that the pain lasted for about 5 minutes before gradually subsiding on its own States that he's had no recurrence of his chest pains since No nausea/vomiting, no abdominal pain No change in bowel habits noted He had his follow up labs done yesterday - to discuss his results [facility] Medical History Anxiety Vitamin D deficiency Left elbow pain Elevated blood pressure reading Degenerative arthritis of cervical spine Right rotator cuff tear arthropathy Osteoarthritis Dyslipidemia Obesity (BMI 30-39.9) Degenerative joint disease of right knee Diabetes mellitus COPD (chronic obstructive pulmonary disease) Surgical History History of elbow surgery H/O right wrist surgery History of hernia repair S/P LASIK surgery of both eyes History of vasectomy Family History Father Diabetes Mother Medical history unknown Other Substance abuse Social History Housing: House Alcohol intake: former Patient Tobacco Use Status: Former Tobacco user e-Cigarette/Vaping Use: Never Used Second Hand Smoke Exposure: Yes service: Yes ([employer]) Current occupational status: retired Cognitive needs: No Hearing needs: No Vision needs: Yes (Glasses) Questionnaire PHQ-9 Over the last 2 weeks, how often have you been bothered by any of the following problems? 1. Little interest or pleasure in doing things: several days 2. Feeling down, depressed, or hopeless: more than half the days 3. Trouble falling or staying asleep, or sleeping too much: more than half the days 4. Feeling tired or having little energy: more than half the days 5. Poor appetite or overeating: not at all 6. Feeling bad about yourself - or that you are a failure or have let yourself or your family down: not at all 7. Trouble concentrating on things, such as reading the newspaper or watching television: more than half the days 8. Moving or speaking so slowly that other people could have noticed. Or the opposite - being so fidgety or restless that you have been moving around a lot more than usual: more than half the days 9. Thoughts that you would be better off or of hurting yourself in some way: not at all Total score: 11 Depression Screening Interpretation: Positive Depression Screening Follow-up: Existing condition and In treatment Depression Screening Done: Yes 01196 - PHQ-9 Billing: Yes Source: Developed by Drs. Juan Manuel Maldonado, Brigitte Santiago, Khurram Winkler and colleagues, with an educational serafin from [employer]. Thrive Questionnaire Date Thrive assessed: 06/30/25 I am a: Patient What is your living situation today?: I have a steady place to live Within the past 12 months, did the food you bought not last and you didn't have the money to get more?: Never true Within the past 12 months, did you worry whether your food would run out before you got money to buy more?: Never true Do you have trouble paying for medicines?: No Do you have trouble getting transportation to medical appointments?: No Do you have trouble paying your heating and electricity bill?: No Do you have trouble taking care of your child, family member or friend?: No Do you have trouble with day-to-day activities such as bathing, preparing meals, shopping, managing finances, etc.?: Yes Are you currently unemployed and looking for a job?: Yes Are you interested in more education?: No Please select the resources that you would like help with: None Currently or been in a relationship where the following occur: No concerns reported THRIVE Score: 0 AUDIT C Alcohol Use Questionnaire (AUDIT-C) 1. How often do you have a drink containing alcohol?: Never 3. How often do you have six or more drinks on one occasion?: Never Total Score: 0 Score Reviewed/Action Taken: Yes MONSTER-7 AMB Questionnaire MONSTER-7 Date MONSTER - 7 assessed: 06/30/25 Feeling nervous, anxious, or on edge: 2 = More than half the days Not being able to stop or control worryin = More than half the days Worrying too much about different things: 2 = More than half the days Trouble relaxin = More than half the days Being so restless that it is hard to sit still: 2 = More than half the days Becoming easily annoyed or irritable: 2 = More than half the days Feeling afraid as if something awful might happen: 2 = More than half the days Total MONSTER-7 score (0-4 normal; 5-9 mild; 10-14 moderate; 15-21 severe): 14 Source: Developed by Drs. Juan Manuel Maldonado, Brigitte Santiago, Khurram Winkler and colleagues, with an educational serafin from [employer]. Review of Systems Const Denies chills, Reports difficulty sleeping, Reports fatigue, Denies fever(s) and Denies headache(s) ENT Denies dysphagia, Denies dizziness, Denies otalgia, Denies headache(s), Reports neck pain (chronic - increasing lately), Denies odynophagia and Denies sore throat Card Reports as per HPI, Denies chest pain with activity, Denies palpitations and Reports dyspnea on exertion (mild) Resp Denies chest congestion, Reports cough (on and off; coughs up thick whitish phlegm at times), Denies hemoptysis, Reports dyspnea on exertion (mild) and Denies wheezing GI Denies abdominal pain, Denies constipation, Denies dysphagia, Denies heartburn, Denies diarrhea, Denies nausea, Denies odynophagia and Denies vomiting Denies difficulty urinating, Denies dysuria, Denies nocturia and Denies urinary frequency Musc Denies back pain, Reports arthralgias (involving both knees and hips; increased over both shoulders lately), Reports neck pain (chronic - increasing lately) and Reports stiffness Skin/Breast Denies rash Neuro Denies dizziness and Denies headache(s) Psych Reports anxiety and Reports depression Endo Reports fatigue and Denies palpitations Aller/Immun Denies wheezing Physical exam (Primary Care) Vital Signs: Last Vital Signs Pulse 100 06/30/25 14:10 BP 142/86 H 06/30/25 14:10 Pulse Ox 94 06/30/25 14:10 Oxygen Delivery Method Room Air 06/30/25 14:10 BMI result Body Mass Index 30.5 Tobacco/Smoking Status: Tobacco use Status Tobacco use date assessed 06/30/25 06/30/25 14:21 Patient Tobacco Use Status Former Tobacco user 06/30/25 14:21 e-Cigarette/Vaping Use Never Used 06/30/25 14:21 PHQ-9: PHQ-9 Score PHQ-9: Total score 11 06/30/25 14:39 Depression Screening Interpretation: Positive Depression Screening Follow-up: E xisting condition and In treatment Thrive Assessment: Date of Thrive Assessment Date Thrive assessed 06/30/25 06/30/25 14:21 Currently or been in a relationship where the following occur: No concerns reported Const General: no acute distress and alert HENMT Ears: TM's normal bilaterally and EAC's normal Throat: Yes posterior oropharynx normal and Yes tonsils normal (no TP congestion noted) Neck Neck: No lymphadenopathy and Yes tender Thyroid: Thyroid normal Resp Auscultation: no rales, no wheezes and diminished lung sounds (slightly) bilateral Cardio Rate: regular rate Rhythm: regular rhythm Heart sounds: no murmurs GI Palpation (GI): Soft to palpation and nontender Auscultation: normal bowel sounds General: Yes no CVA tenderness Back/Spine/Pelvis Back: no CVA tenderness Cervical Spine: Cervical spine tenderness (chronic) Thoracic/Lumbar Spine: No lumbar spinal tenderness Extrem General: Yes no clubbing, cyanosis or edema Right lower extremity: knee Details: tenderness; no swelling Left lower extremity: knee Details: tenderness; no swelling Results Reviewed Results Reviewed: Laboratory Tests 06/29/25 06:12 WBC 8.0 Hgb 15.3 Hct 46.1 Plt Count 228 Sodium 136 Potassium 4.0 Creatinine 0.69 Estimated GFR > 60 Fasting Glucose 124 H Hemoglobin A1c % 6.1 H Calcium 9.2 D AST 25 ALT 13 Triglycerides 59 Cholesterol 188 LDL Cholesterol, Calc 112 H HDL Cholesterol 65 Coding Level of Care Code Est Pt Level 4 (52407) Diagnoses Chronic obstructive pulmonary disease, unspecified COPD type J44.9 COPD type: unspecified COPD Type 2 diabetes mellitus without complication, without long-term current use of insulin E11.9 Diabetes mellitus type: type 2 Diabetes mellitus [facility] insulin use: without intermediate accountant use Diabetes mellitus complication status: without complication Elevated blood pressure reading R03.0 Dyslipidemia E78.5 Vitamin D deficiency E55.9 Osteoarthritis of cervical spine, unspecified spinal osteoarthritis complication status M47.812 Spinal osteoarthritis complication: unspecified spinal osteoarthritis Primary osteoarthritis, unspecified site M19.91 Osteoarthritis location: unspecified site Osteoarthritis type: primary Insomnia, unspecified type G47.00 Insomnia type: unspecified Anxiety F41.9 Obesity (BMI 30-39.9) E66.9 Additional Codes PHQ-9 - 66861 - PHQ-9 Billing: Yes ([id number]) Assessment & Plan Assessment & Plan (1) COPD (chronic obstructive pulmonary disease): Comment: severe COPD on PFTs with partial reversibility - 11/2011 - sees Dr. Laws Code(s): J44.9 - Chronic obstructive pulmonary disease, unspecified Category: Medical Qualifiers: COPD type: unspecified COPD Qualified Code(s): J44.9 - Chronic obstructive pulmonary disease, unspecified Plan: Appears better controlled lately Continue Pulmicort Flexhaler 180 mcg 2 inhalations BID and Spiriva Respimat 2.5 mcg 2 inhalations QD and Albuterol HFA 2 inhalations Q 6 hours PRN Follow [place] [facility] [place] (2) Diabetes mellitus: Code(s): E11.9 - Type 2 diabetes mellitus without complications Category: Medical Qualifiers: Diabetes mellitus type: type 2 Diabetes mellitus intermediate accountant insulin use: without [facility] use Diabetes mellitus complication status: without complication Qualified Code(s): E11.9 - Type 2 diabetes mellitus without complications Plan: His HgbA1c remains at 6.1% on his labs done yesterday (in-office HgbA1c was also at 6.1% when previously checked in October 2024) - goal is <7.0% Reinforced diabetic diet Continue Tradjenta 5 mg QD (3) Elevated blood pressure reading: Code(s): R03.0 - Elevated blood-pressure reading, without diagnosis of hypertension Category: Medical Plan: Reinforced low sodium diet His blood pressure is still slightly higher than recommended today Patient is reminded to continue monitoring his blood pressure regularly Per request, will also send him for a 12 lead EKG for further evaluation (4) Dyslipidemia: Code(s): E78.5 - Hyperlipidemia, unspecified Category: Medical Plan: Results of his labs done yesterday reviewed and discussed with patient Reinforced low cholesterol diet Will recheck his fasting lipids and labs again in 4 months for follow up (5) Vitamin D deficiency: Code(s): E55.9 - Vitamin D deficiency, unspecified Category: Medical Plan: Continue Vitamin D3 2000 units QD (6) Degenerative arthritis of cervical spine: Code(s): M47.812 - Spondylosis without myelopathy or radiculopathy, cervical region Category: Medical Qualifiers: Spinal osteoarthritis complication: unspecified spinal osteoarthritis Qualified Code(s): M47.812 - Spondylosis without myelopathy or radiculopathy, cervical region Plan: X-rays of the cervical spine done back in 2013 revealed degenerative spondylosis and degenerative disc disease at C5-C6 and C6-C7 Repeat cervical spine x-rays done back in 2020 came out as a limited cervical spine study with lack of visualization of the lower aspect of C5 through C7, but no acute fracture or prevertebral soft tissue swelling was appreciated on this limited study. Continue Tramadol 50 mg TID PRN and Tizanidine 4 mg TID PRN for now Will send him for repeat cervical spine x-rays at this time Have discussed with patient that an MRI of the cervical spine may be needed but will first depend on how his x-rays come back A referral to pain management should also be considered especially if his neck pain is progressing and he has no surgical indications for his chronic neck pain (7) Osteoarthritis: Comment: involving both knees and both hips Code(s): M19.90 - Unspecified osteoarthritis, unspecified site Category: Medical Qualifiers: Osteoarthritis location: unspecified site Osteoarthritis type: primary Qualified Code(s): M19.91 - Primary osteoarthritis, unspecified site Plan: Continue Tramadol 50 mg TID PRN for pain May need to refer him back to orthopedics if his joint pains get worse (8) Insomnia: Code(s): G47.00 - Insomnia, unspecified Category: Medical Qualifiers: Insomnia type: unspecified Qualified Code(s): G47.00 - Insomnia, unspecified Plan: Sleep hygiene reinforced He was started on Trazodone 50 mg Q HS PRN earlier this year but states that it did not help so he stopped taking it after a while He does not wish to get any other new Rx at this time (9) Anxiety: Code(s): F41.9 - Anxiety disorder, unspecified Category: Medical Plan: Continue Sertraline 50 mg QD States that he has been doing better lately although he still has a lot of stress at home (10) Obesity (BMI 30-39.9): Code(s): E66.9 - Obesity, unspecified Category: Medical Plan: Reinforced diet; exercise and weight loss are unrealistic given patient's COPD and limited activity tolerance Plan Follow up in 4 months Orders: Orders XR shoulder RT min 2V Today M25.511 - Pain in right shoulder Complete Blood Count Auto Diff 4 Months D64.9 - Anemia, unspecified Comprehensive [employer]. Panel Fast 4 Months E78.00 - Pure hypercholesterolemia, unspecified Lipid Panel 4 Months E78.00 - Pure hypercholesterolemia, unspecified TSH reflex Free T4 4 Months E78.00 - Pure hypercholesterolemia, unspecified XR cervical spine 3V Today M54.2 - Cervicalgia XR shoulder LT min 2V Today M25.512 - Pain in left shoulder ECG 12 lead EKG Today R07.9 - Chest pain, unspecified UA CC w/rflx Micro + Cult 4 Months R30.0 - Dysuria Vitamin D 25-OH Total 4 Months E55.9 - Vitamin D deficiency, unspecified
== END 2025-06-30 14:56 | disposition home or self-care (01) ==
LOC: HO.HMCH 14:06
PROVIDERS: PCP Internal Medicine; Visit Provider Internal Medicine
DX: J44.9 Chronic obstructive pulmonary disease, unspecified (principal); E11.69 Type 2 diabetes mellitus with other specified complication; E66.9 Obesity, unspecified; Z68.30 Body mass index [BMI] 30.0-30.9, adult; R03.0 Elevated blood-pressure reading, without diagnosis of hypertension; E78.5 Hyperlipidemia, unspecified; E55.9 Vitamin D deficiency, unspecified; M47.812 Spondylosis without myelopathy or radiculopathy, cervical region; M19.91 Primary osteoarthritis, unspecified site; G47.00 Insomnia, unspecified; F41.9 Anxiety disorder, unspecified

== ENCOUNTER → 2025-06-30 14:05 | Outpatient (BNVA) | payer MEDICARE, SELFPAY | PROVIDERS: PCP Internal Medicine; Visit Provider Internal Medicine | DX: J44.9 Chronic obstructive pulmonary disease, unspecified (principal); E11.9 Type 2 diabetes mellitus without complications; R03.0 Elevated blood-pressure reading, without diagnosis of hypertension; E78.5 Hyperlipidemia, unspecified; E55.9 Vitamin D deficiency, unspecified; M47.812 Spondylosis without myelopathy or radiculopathy, cervical region; M19.91 Primary osteoarthritis, unspecified site; G47.00 Insomnia, unspecified; F41.1 Generalized anxiety disorder; E66.9 Obesity, unspecified; Z68.30 Body mass index [BMI] 30.0-30.9, adult; Z71.3 Dietary counseling and surveillance | CPT/HCPCS: 96127; 99212 ==

== ENCOUNTER 2025-11-05 06:01 | Outpatient (REF) | payer MEDICARE, SELFPAY ==
[2025-11-05 10:10] LABS: Appearance Urine Clear; Glucose Urine UA Negative (Negative); PH 5.5 (5.0-9.0); Specific Gravity - Urine 1.015 (1.005-1.025)
[2025-11-05 10:23] LABS: MANUAL DIFF FLAG NO
[2025-11-05 10:38] LABS: Hematocrit 47.4 % (42.0-52.0); Hemoglobin 15.7 g/dl (14.0-18.0); Imm Gran Abs Auto 0.03 X10*3/uL (0.00-0.03); Imm Gran Pct Auto 0.4 % (0.0-0.4); Lymphocytes Absolute Auto 1.4 X10*3/uL (1.2-4.9); Mean Corpuscular HGB Conc 33.1 g/dl (31.0-36.0); Mean Corpuscular Hemoglobin 31.4 pg (27.0-33.0); Mean Corpuscular Volume 94.8 fL (80.0-98.0); NRBC Abs Auto 0.000 X10*3/uL (0.0-0.012); NRBC Pct Auto 0.0 /100WBC (0.0-0.2); Platelet Count 220 X10*3/uL (160-400); Red Blood Count 5.00 X10*6/uL (4.60-5.80); White Blood Count 8.1 X10*3/uL (4.8-10.8)
[2025-11-05 10:51] LABS: Alanine Aminotransferase 15 U/L (0-40); Albumin Level 4.5 g/dL (3.5-5.0); Alkaline Phosphatase 80 U/L (39-117); Anion Gap 15 (12-20); Aspartate Amino Transferase 27 U/L (5-37); Blood Urea Nitrogen 16 mg/dL (9-16); Calcium 9.3 mg/dL (8.4-10.2); Carbon Dioxide 26 mmol/L (22-29); Chloride 101 mmol/L (96-108); Cholesterol 170 mg/dL (<200); Estimated Glomerular Filt Rate > 60; HDL Cholesterol 62 mg/dL (>40); Potassium 4.7 mmol/L (3.3-5.1); Sodium 137 mmol/L (135-145); Total Protein 7.3 g/dL (6.5-8.0); Triglycerides 54 mg/dL (<150)
== END 2025-11-05 06:02 | disposition home or self-care (01) ==
LOC: HO.HMGCLDS 06:01
PROVIDERS: PCP Internal Medicine; Visit Provider Internal Medicine
DX: R30.0 Dysuria (principal); E78.00 Pure hypercholesterolemia, unspecified; D64.9 Anemia, unspecified; E55.9 Vitamin D deficiency, unspecified
CPT/HCPCS: 36415; 80053; 80061; 81003; 82306; 84443; 85025

== ENCOUNTER 2025-11-06 08:38 | Outpatient (AMB) | payer MEDICARE, SELFPAY ==
[2025-11-06 08:41] VITALS: BP 130/82; PULSE 97; O2SAT 93; BMI 31.7
--- NOTE | 2025-11-06 08:41 | A.OFFPC_ITS ---
Vital Signs 11/06/25 08:41 Height 5 ft 6 in Weight 196 lb 6 oz BMI 31.7 BP 130/82 Blood Pressure Location Lt brachial Position Sitting Pulse 97 Pulse Source Pulse Oximeter Pulse Oximetry (%) 93 Oxygen Delivery Method Room Air Intake Visit Reasons: 4mth f/u Chaplain Resident Required: No Accompanied by: Self / Same As Patient Allergies cortisone Allergy (Unknown, Verified 11/06/25 09:24) Unknown penicillin V Allergy (Unknown, Verified 11/06/25 09:24) rash/hyperventilation, hives tramadol Allergy (Unknown, Verified 11/06/25 09:24) rash metformin Adverse Reaction (Intermediate, Verified 11/06/25 09:24) abdominal pain Medication List - Last Reconciled 11/06/25 by Jack Gomez MD albuterol sulfate 2.5 mg (3 mL) continuous nebulization Q6H PRN 90 days Breo Ellipta 200-25 mcg/dose (fluticasone furoate-vilanterol) 1 inh inhalation DAILY 30 days NS cholecalciferol (vitamin D3) 50 mcg PO DAILY 90 days Incruse Ellipta 62.5 mcg/actuation (umeclidinium) 1 inh inhalation DAILY 30 days NS sertraline 50 mg PO DAILY 90 days tramadol 50 mg PO TID PRN 30 days Ventolin HFA 90 mcg/actuation (albuterol sulfate) 2 puffs PO Q4H NS Tobacco use date assessed: 11/06/25 Fall risk assessment: 1 Fall in past year Last assessed Fall Risk: 11/06/25 Dental Screening Dental Screen Date: 11/06/25 Did you have a dental visit in the last 12 months?: No Did you have a dental problem in the last 6 months where you did not have access to dental care?: No Was dental information given to patient?: No HPI 4mth f/u HPI Details Patient comes in today for his follow up visit States that he feels okay but is wondering if he is allergic to Albuterol as he feels like every time he tries to cough up his phlegm after using his rescue inhaler or nebulizer, he would feel like his throat would 'plug up' and he would not be able to cough up anything States that he otherwise does not have any trouble breathing or swallowing and he denies any sore throat He denies any fever, headaches or dizziness Denies any chest pains, still has frequent dyspnea on exertion but states that this has not gotten any worse from before No nausea/vomiting, no abdominal pain No change in bowel habits noted Needs a couple of his Rx refilled, including his Tramadol He had his follow up labs done yesterday but was not able to get his x-rays and EKG done yet - to discuss his results [facility] Medical History Anxiety Vitamin D deficiency Left elbow pain Elevated blood pressure reading Degenerative arthritis of cervical spine Right rotator cuff tear arthropathy Osteoarthritis Dyslipidemia Obesity (BMI 30-39.9) Degenerative joint disease of right knee Diabetes mellitus COPD (chronic obstructive pulmonary disease) Surgical History History of elbow surgery H/O right wrist surgery History of hernia repair S/P LASIK surgery of both eyes History of vasectomy Family History Father Diabetes Mother Medical history unknown Other Substance abuse Social History Housing: House Alcohol intake: former Patient Tobacco Use Status: Former Tobacco user e-Cigarette/Vaping Use: Never Used Second Hand Smoke Exposure: Yes service: Yes ([employer]) Current occupational status: retired Cognitive needs: No Hearing needs: No Vision needs: Yes (Glasses) Questionnaire PHQ-9 Over the last 2 weeks, how often have you been bothered by any of the following problems? 1. Little interest or pleasure in doing things: several days 2. Feeling down, depressed, or hopeless: more than half the days 3. Trouble falling or staying asleep, or sleeping too much: more than half the days 4. Feeling tired or having little energy: more than half the days 5. Poor appetite or overeating: not at all 6. Feeling bad about yourself - or that you are a failure or have let yourself or your family down: not at all 7. Trouble concentrating on things, such as reading the newspaper or watching television: more than half the days 8. Moving or speaking so slowly that other people could have noticed. Or the opposite - being so fidgety or restless that you have been moving around a lot more than usual: more than half the days 9. Thoughts that you would be better off or of hurting yourself in some way: not at all Total score: 11 Depression Screening Interpretation: Positive Depression Screening Follow-up: Existing condition and In treatment Depression Screening Done: Yes 90039 - PHQ-9 Billing: Yes Source: Developed by Drs. Juan Manuel Maldonado, Brigitte Santiago, Khurram Winkler and colleagues, with an educational serafin from [employer]. Thrive Questionnaire Date Thrive assessed: 11/06/25 I am a: Patient What is your living situation today?: I have a steady place to live Within the past 12 months, did the food you bought not last and you didn't have the money to get more?: Never true Within the past 12 months, did you worry whether your food would run out before you got money to buy more?: Never true Do you have trouble paying for medicines?: No Do you have trouble getting transportation to medical appointments?: No Do you have trouble paying your heating and electricity bill?: No Do you have trouble taking care of your child, family member or friend?: No Do you have trouble with day-to-day activities such as bathing, preparing meals, shopping, managing finances, etc.?: Yes Are you currently unemployed and looking for a job?: Yes Are you interested in more education?: No Currently or been in a relationship where the following occur: No concerns reported THRIVE Score: 0 AUDIT C Alcohol Use Questionnaire (AUDIT-C) 1. How often do you have a drink containing alcohol?: Never 3. How often do you have six or more drinks on one occasion?: Never Total Score: 0 Score Reviewed/Action Taken: Yes MONSTER-7 AMB Questionnaire MONSTER-7 Date MONSTER - 7 assessed: 11/06/25 Feeling nervous, anxious, or on edge: 2 = More than half the days Not being able to stop or control worryin = More than half the days Worrying too much about different things: 2 = More than half the days Trouble relaxin = More than half the days Being so restless that it is hard to sit still: 2 = More than half the days Becoming easily annoyed or irritable: 2 = More than half the days Feeling afraid as if something awful might happen: 2 = More than half the days Total MONSTER-7 score (0-4 normal; 5-9 mild; 10-14 moderate; 15-21 severe): 14 Source: Developed by Drs. Juan Manuel Maldonado, Brigitte Santiago, Khurram Winkler and colleagues, with an educational serafin from [employer]. Review of Systems Const Denies chills, Reports difficulty sleeping, Reports fatigue, Denies fever(s) and Denies headache(s) ENT Reports as per HPI, Denies dysphagia, Denies dizziness, Denies otalgia, Denies headache(s), Reports neck pain (chronic - increasing lately), Denies odynophagia and Denies sore throat Card Denies chest pain with activity, Denies palpitations and Reports dyspnea on exertion (mild) Resp Denies chest congestion, Reports cough (on and off; coughs up thick whitish phlegm at times), Denies hemoptysis, Reports dyspnea on exertion (mild) and Denies wheezing GI Denies abdominal pain, Denies constipation, Denies dysphagia, Denies heartburn, Denies diarrhea, Denies nausea, Denies odynophagia and Denies vomiting Denies difficulty urinating, Denies dysuria, Denies nocturia and Denies urinary frequency Musc Denies back pain, Reports arthralgias (involving both knees and hips; increased over both shoulders lately), Reports neck pain (chronic - increasing lately) and Reports stiffness Skin/Breast Denies rash Neuro Denies dizziness and Denies headache(s) Psych Reports anxiety and Reports depression Endo Reports fatigue and Denies palpitations Aller/Immun Denies wheezing Physical exam (Primary Care) Vital Signs: Last Vital Signs Pulse 97 11/06/25 08:41 BP 130/82 11/06/25 08:41 Pulse Ox 93 11/06/25 08:41 Oxygen Delivery Method Room Air 11/06/25 08:41 BMI result Body Mass Index 31.7 Tobacco/Smoking Status: Tobacco use Status Tobacco use date assessed 11/06/25 11/06/25 08:48 Patient Tobacco Use Status Former Tobacco user 11/06/25 08:48 e-Cigarette/Vaping Use Never Used 11/06/25 08:48 PHQ-9: PHQ-9 Score PHQ-9: Total score 11 11/06/25 08:48 Depression Screening Interpretation: Positive Depression Screening Follow-up: Existing condition and In treatment Thrive Assessment: Date of Thrive Assessment Date Thrive assessed 11/06/25 11/06/25 08:48 Currently or been in a relationship where the following occur: No concerns reported Const General: no acute distress and alert HENMT Ears: TM's normal bilaterally and EAC's normal Throat: Yes posterior oropharynx normal and Yes tonsils normal (no TP congestion noted) Neck Neck: No lymphadenopathy and Yes tender Thyroid: Thyroid normal Resp Auscultation: no rales, no wheezes and diminished lung sounds (slightly) bilateral Cardio Rate: regular rate Rhythm: regular rhythm Heart sounds: no murmurs GI Palpation (GI): Soft to palpation and nontender Auscultation: normal bowel sounds General: Yes no CVA tenderness Back/Spine/Pelvis Back: no CVA tenderness Cervical Spine: Cervical spine tenderness (chronic) Thoracic/Lumbar Spine: No lumbar spinal tenderness Extrem General: Yes no clubbing, cyanosis or edema Right lower extremity: knee Details: tenderness; no swelling Left lower extremity: knee Details: tenderness; no swelling Results Reviewed Results Reviewed: Laboratory Tests 11/05/25 06:00 WBC 8.1 Hgb 15.7 Hct 47.4 Plt Count 220 Sodium 137 Potassium 4.7 Creatinine 0.84 Estimated GFR > 60 Fasting Glucose 118 H Calcium 9.3 AST 27 ALT 15 Triglycerides 54 Cholesterol 170 LDL Cholesterol, Calc 98 HDL Cholesterol 62 25-OH Vitamin D Total 28.0 L TSH 0.74 Ur Specific [place] 1.015 Urine Protein Negative Urine Glucose (UA) Negative Urine Blood Negative Urine Nitrite Negative Ur Leukocyte Esterase Negative Coding Level of Care Code Est Pt Level 4 (79304) Add On Problem Visit Only Diagnoses Chronic obstructive pulmonary disease, unspecified COPD type J44.9 COPD type: unspecified COPD Type 2 diabetes mellitus without complication, without long-term current use of insulin E11.9 Diabetes mellitus type: type 2 Diabetes mellitus jail insulin use: without adjunct faculty for medical terminology use Diabetes mellitus complication status: without complication Elevated blood pressure reading R03.0 Dyslipidemia E78.5 Vitamin D deficiency E55.9 Osteoarthritis of cervical spine, unspecified spinal osteoarthritis complication status M47.812 Spinal osteoarthritis complication: unspecified spinal osteoarthritis Primary osteoarthritis, unspecified site M19.91 Osteoarthritis location: unspecified site Osteoarthritis type: primary Insomnia, unspecified type G47.00 Insomnia type: unspecified Anxiety F41.9 Obesity (BMI 30-39.9) E66.9 Additional Codes PHQ-9 - 99999 - PHQ-9 Billing: Yes ([id number]) Assessment & Plan Assessment & Plan (1) COPD (chronic obstructive pulmonary disease): Comment: severe COPD on PFTs with partial reversibility - 11/2011 - sees Dr. Laws Code(s): J44.9 - Chronic obstructive pulmonary disease, unspecified Category: Medical Qualifiers: COPD type: unspecified COPD Qualified Code(s): J44.9 - Chronic obstructive pulmonary disease, unspecified Plan: Continue Breo Ellipta 200-25 mcg 1 inhalation QD and Incruse Ellipta 62.5 mcg 1 inhalation QD and Albuterol HFA 2 inhalations Q 6 hours PRN [place] [facility] [place] Due to his current c/o of frequent mucus and difficulty in coughing them up (feels like his throat is plugging up), will also send him for updated chest x- rays [facility] Have advised patient that his reaction does not seem to be consistent with an allergic reaction to Albuterol (2) Diabetes mellitus: Code(s): E11.9 - Type 2 diabetes mellitus without complications Category: Medical Qualifiers: Diabetes mellitus type: type 2 Diabetes mellitus jail insulin use: without jail use Diabetes mellitus complication status: without complication Qualified Code(s): E11.9 - Type 2 diabetes mellitus without complications Plan: His HgbA1c remains at 6.1% when last checked a few months ago - unclear why one was not included in his recent labs Hin-office HgbA1c was also at 6.1% when previously checked in October 2024 - goal is <7.0% Reinforced diabetic diet We tried starting patient on Tradjenta 5 mg QD previously (he had abdominal pain from Metformin IR and ER) but his insurance would not cover the Rx and patient has just been trying to keep his diabetes controlled through diet alone at this time (3) Elevated blood pressure reading: Code(s): R03.0 - Elevated blood-pressure reading, without diagnosis of hypertension Category: Medical Plan: Reinforced low sodium diet Patient is reminded to continue monitoring his blood pressure regularly Per request, we also sent him for a 12 lead EKG for further evaluation but he has not been able to get this done yet - states that he will try to get this and all of his x-rays done [facility] (4) Dyslipidemia: Code(s): E78.5 - Hyperlipidemia, unspecified Category: Medical Plan: Results of his labs done yesterday reviewed and discussed with patient Reinforced low cholesterol diet Will recheck his fasting lipids and labs again in 4 months for follow up (5) Vitamin D deficiency: Code(s): E55.9 - Vitamin D deficiency, unspecified Category: Medical Plan: Continue Vitamin D3 2000 units QD (6) Degenerative arthritis of cervical spine: Code(s): M47.812 - Spondylosis without myelopathy or radiculopathy, cervical region Category: Medical Qualifiers: Spinal osteoarthritis complication: unspecified spinal osteoarthritis Qualified Code(s): M47.812 - Spondylosis without myelopathy or radiculopathy, cervical region Plan: X-rays of the cervical spine done back in 2013 revealed degenerative spondylosis and degenerative disc disease at C5-C6 and C6-C7 Repeat cervical spine x-rays done back in 2020 came out as a limited cervical spine study with lack of visualization of the lower aspect of C5 through C7, but no acute fracture or prevertebral soft tissue swelling was appreciated on this limited study. Continue Tramadol 50 mg TID PRN and Tizanidine 4 mg TID PRN for now We sent him for repeat cervical spine x-rays at his last visit but he has not been able to get this done yet Have discussed with patient that an MRI of the cervical spine may be needed but will first depend on how his x-rays come back A referral to pain management should also be considered especially if his neck pain is progressing and he has no surgical indications for his chronic neck pain (7) Osteoarthritis: Comment: involving both knees and both hips Code(s): M19.90 - Unspecified osteoarthritis, unspecified site Category: Medical Qualifiers: Osteoarthritis location: unspecified site Osteoarthritis type: primary Qualified Code(s): M19.91 - Primary osteoarthritis, unspecified site Plan: Continue Tramadol 50 mg TID PRN for pain May need to refer him back to orthopedics if his joint pains get worse (8) Insomnia: Code(s): G47.00 - Insomnia, unspecified Category: Medical Qualifiers: Insomnia type: unspecified Qualified Code(s): G47.00 - Insomnia, unspecified Plan: Sleep hygiene reinforced He was started on Trazodone 50 mg Q HS PRN earlier this year but states that it did not help so he stopped taking it after a while He does not wish to be started on any other new Rx at this time (9) Anxiety: Code(s): F41.9 - Anxiety disorder, unspecified Category: Medical Plan: Continue Sertraline 50 mg QD States that he has been doing better lately although he still has a lot of stress at home (10) Obesity (BMI 30-39.9): Code(s): E66.9 - Obesity, unspecified Category: Medical Plan: Reinforced diet; exercise and weight loss are unrealistic given patient's COPD and limited activity tolerance Plan Follow up in 4 months Orders: Orders XR chest 2V Today R05.9 - Cough, unspecified Hemoglobin A1c 4 Months E11.9 - Type 2 diabetes mellitus without complications Complete Blood Count Auto Diff 4 Months D64.9 - Anemia, unspecified Comprehensive [place]. Panel Fast 4 Months E78.00 - Pure hypercholesterolemia, unspecified TSH reflex Free T4 4 Months E78.00 - Pure hypercholesterolemia, unspecified UA CC w/rflx Micro + Cult 4 Months R30.0 - Dysuria Vitamin D 25-OH Total 4 Months E55.9 - Vitamin D deficiency, unspecified Vitamin B12 and Folate 4 Months E53.8 - Deficiency of other specified B group vitamins Lipid Panel 4 Months E78.00 - Pure hypercholesterolemia, unspecified Microalbumin, Random (w Creat) 4 Months E11.9 - Type 2 diabetes mellitus without complications Medications: New guaifenesin ER (Mucinex) 600 mg PO BID PRN 60 tabs 3RF congestion Refilled tramadol 50 mg PO TID PRN 90 tabs 0RF pain 30 days albuterol sulfate 2.5 mg (3 mL) continuous nebulization Q6H PRN 360 mL 2RF for wheezing 90 days J44.9 - Chronic obstructive pulmonary disease, unspecified
== END 2025-11-06 09:52 | disposition home or self-care (01) ==
LOC: HO.HMCH 08:38
PROVIDERS: PCP Internal Medicine; Visit Provider Internal Medicine
DX: J44.9 Chronic obstructive pulmonary disease, unspecified (principal); E11.9 Type 2 diabetes mellitus without complications; R03.0 Elevated blood-pressure reading, without diagnosis of hypertension; E78.5 Hyperlipidemia, unspecified; E55.9 Vitamin D deficiency, unspecified; M47.812 Spondylosis without myelopathy or radiculopathy, cervical region; M19.91 Primary osteoarthritis, unspecified site; G47.00 Insomnia, unspecified; F41.9 Anxiety disorder, unspecified; E66.9 Obesity, unspecified

== ENCOUNTER → 2025-11-06 08:38 | Outpatient (BNVA) | payer MEDICARE, SELFPAY | PROVIDERS: PCP Internal Medicine; Visit Provider Internal Medicine | DX: E11.9 Type 2 diabetes mellitus without complications (principal); J44.9 Chronic obstructive pulmonary disease, unspecified; R03.0 Elevated blood-pressure reading, without diagnosis of hypertension; E55.9 Vitamin D deficiency, unspecified; M47.812 Spondylosis without myelopathy or radiculopathy, cervical region; M19.91 Primary osteoarthritis, unspecified site; G47.00 Insomnia, unspecified; F41.9 Anxiety disorder, unspecified; E66.9 Obesity, unspecified; Z13.31 Encounter for screening for depression; Z13.39 Encounter for screening examination for other mental health and behavioral disorders; Z79.899 Other long term (current) drug therapy | CPT/HCPCS: 96127; 99212 ==